=== PATIENT | male | born 1950 | race Caucasian/White ===

== ENCOUNTER 2019-10-28 15:53 | Inpatient (IN) ==
[2019-10-28] MEDS ORDERED: Ondansetron 4 MG/2 ML VIAL IVP PRN (18:07)
[2019-10-28] MEDS ORDERED: Naloxone 0.4 MG/ML INJ IVP PRN (18:07)
[2019-10-28] MEDS ORDERED: Acetaminophen 325 MG TABLET PO PRN (18:07)
[2019-10-28] MEDS ORDERED: *HR* Heparin 5,000 UNIT/ML VIAL IVP PRN ×2 (18:23)
[2019-10-28 19:09] LABS: White Blood Count 10.1 K/mcL (4.3-11.1)
[2019-10-28 19:10] LABS: Basophils # 0.1 K/mcL (0.0-0.2); Basophils % 0.5 %; Eosinophils # 0.6 K/mcL (0.0-0.6); Eosinophils % 6.2 %; Hematocrit 38.5 % (37.5-50.1); Immature Granulocytes % 0.5 % (0-4); Lymphocytes # 1.6 K/mcL (0.6-4.6); Lymphocytes % 15.6 %; Mean Corpuscular HGB Conc 33.8 g/dL (31.6-35.5); Mean Corpuscular Hemoglobin 30.8 pg (28.0-33.3); Mean Corpuscular Volume 91.2 fL (83.0-100.0); Mean Platelet Volume 9.6 fL (9.4-12.4); Monocytes # 0.9 K/mcL (0.0-1.3); Monocytes % 8.9 %; Neutrophils # 6.9 K/mcL (1.6-8.9); Platelet Count 264 K/mcL (140-400); Red Blood Count 4.22 M/mcL (4.19-5.50); Red Cell Distribution Width 12.6 % (11.5-14.5); Segmented Neutrophils % 68.3 %
[2019-10-28 19:18] LABS: Heparin anti-factor XA UFH 0.5 IU/mL (0.30-0.70); Prothrombin Time 11.1 Seconds (9.4-12.1)
[2019-10-28 19:21] LABS: Activated Partial Thrombo Time 64.1 Seconds (26.0-36.0)
[2019-10-28] MEDS: Heparin 25,000 UNIT/250 ML D5W 25,000 UNIT/250 ML IV.SOLN IVC SCH (19:27)
[2019-10-28 19:31] LABS: Alanine Aminotransferase 22 Units/L (7-52); Albumin 3.8 g/dL (3.5-5.7); Albumin/Globulin Ratio 1.4 (1.1-2.2); Alkaline Phosphatase 70 Units/L (34-104); Aspartate Amino Transferase 75 Units/L (13-39); BUN/Creatinine Ratio 19 (6-26); Bilirubin,Total 0.6 mg/dL (0.3-1.0); Blood Urea Nitrogen 22 mg/dL (8-23); Calcium 9.5 mg/dL (8.6-10.3); Carbon Dioxide 27 mEq/L (23-29); Chloride 101 mEq/L (98-107); Chol/HDL Ratio 5.4 (0-4.9); Cholesterol 209 mg/dL (< 200); Globulin 2.8 g/dL (2.4-3.5); Glucose 249 mg/dL (70-105); HDL Cholesterol 39 mg/dL (40-59); LDL Cholesterol,Calculated 122 mg/dL (0-99); Magnesium 1.7 mg/dL (1.6-2.6); Osmolality,Calculated 298 (280-300); Phosphorous 3.3 mg/dL (2.7-4.5); Potassium 4.2 mEq/L (3.5-5.1); Sodium 138 mEq/L (136-145); Total Protein 6.6 g/dL (6.4-8.9); Triglycerides 242 mg/dL (< 150); eGFR For African Americans > 60 (> 60); eGFR For Non-African Americans > 60 (> 60)
[2019-10-28] MEDS ORDERED: Dextrose Gel 15 GM/37.5 ML TUBE PO PRN ×2 (21:13)
[2019-10-28] MEDS ORDERED: *HR* Dextrose 50 % in Water (Syg) 50 ML SYRINGE IVP PRN (21:13)
[2019-10-28] MEDS ORDERED: Nitroglycerin 0.4 MG TAB.SUBL SL PRN (21:13)
[2019-10-28] MEDS ORDERED: D5% in Water 1,000 ML IVC PRN (21:13)
[2019-10-29 01:44] LABS: Bilirubin,Urine Negative (Negative); Blood,Urine Negative (Negative); Clarity,Urine Clear (Clear); Color,Urine Yellow (Yellow); Glucose,Urine (UA) 500 mg/dL (Normal); Ketones,Urine Trace mg/dL (Negative); Leukocyte Esterase,Urine Negative (Negative); Nitrite,Urine Negative (Negative); Protein,Urine 30 mg/dL (Neg-Trace); Specific Gravity,Urine 1.027 (1.010-1.025); Urobilinogen,Urine Normal (Normal)
[2019-10-29 01:47] LABS: Bacteria,Urine None Seen per hpf (None-Few); Hyaline Casts,Urine None Seen per lpf (None-Few); RBC,Urine 0-3 per hpf (0-3); Squamous Epithelial Cell,Urine Few per lpf (None-Few); WBC,Urine 0-3 per hpf (0-3)
[2019-10-29] MEDS: Insulin LISPRO 300 UNITS/3 ML VIAL SQ SCH ×4 (03:14→17:35)
[2019-10-29 04:54] LABS: Basophils # 0.1 K/mcL (0.0-0.2); Basophils % 0.7 %; Eosinophils # 0.6 K/mcL (0.0-0.6); Eosinophils % 6.6 %; Hematocrit 36.5 % (37.5-50.1); Immature Granulocytes % 0.5 % (0-4); Lymphocytes # 1.7 K/mcL (0.6-4.6); Lymphocytes % 19.8 %; Mean Corpuscular HGB Conc 32.9 g/dL (31.6-35.5); Mean Corpuscular Hemoglobin 31.3 pg (28.0-33.3); Mean Corpuscular Volume 95.1 fL (83.0-100.0); Mean Platelet Volume 10.2 fL (9.4-12.4); Monocytes # 0.7 K/mcL (0.0-1.3); Monocytes % 8.8 %; Neutrophils # 5.3 K/mcL (1.6-8.9); Platelet Count 238 K/mcL (140-400); Red Blood Count 3.84 M/mcL (4.19-5.50); Red Cell Distribution Width 12.6 % (11.5-14.5); Segmented Neutrophils % 63.6 %; White Blood Count 8.3 K/mcL (4.3-11.1)
[2019-10-29 04:58] LABS: Prothrombin Time 11.4 Seconds (9.4-12.1)
[2019-10-29 05:12] LABS: Alanine Aminotransferase 20 Units/L (7-52); Albumin 3.5 g/dL (3.5-5.7); Albumin/Globulin Ratio 1.3 (1.1-2.2); Alkaline Phosphatase 65 Units/L (34-104); Aspartate Amino Transferase 62 Units/L (13-39); BUN/Creatinine Ratio 18 (6-26); Bilirubin,Total 0.5 mg/dL (0.3-1.0); Blood Urea Nitrogen 24 mg/dL (8-23); Calcium 8.9 mg/dL (8.6-10.3); Carbon Dioxide 26 mEq/L (23-29); Chloride 100 mEq/L (98-107); Globulin 2.7 g/dL (2.4-3.5); Glucose 333 mg/dL (70-105); Magnesium 1.7 mg/dL (1.6-2.6); Osmolality,Calculated 299 (280-300); Sodium 136 mEq/L (136-145); Total Protein 6.2 g/dL (6.4-8.9); eGFR For African Americans > 60 (> 60); eGFR For Non-African Americans 54 (> 60)
[2019-10-29] MEDS ORDERED: Ringers Solution, Lactated 1,000 ML IVC ONE (05:28)
[2019-10-29 06:25] LABS: Thyroid Stimulating Hormone 2.613 mcIU/mL (0.340-5.600)
[2019-10-29] MEDS ORDERED: Aspirin 81 MG TAB.CHEW PO SCH (09:30)
[2019-10-29] MEDS: Aspirin 81 MG TAB.CHEW PO SCH (12:34)
[2019-10-29] MEDS ORDERED: Gabapentin 300 MG CAPSULE PO PRN (17:42)
[2019-10-29] MEDS: Heparin 25,000 UNIT/250 ML D5W 25,000 UNIT/250 ML IV.SOLN IVC SCH (19:20)
[2019-10-30 05:38] LABS: Basophils # 0.1 K/mcL (0.0-0.2); Basophils % 0.7 %; Eosinophils # 0.6 K/mcL (0.0-0.6); Eosinophils % 9.1 %; Hematocrit 34.4 % (37.5-50.1); Hemoglobin 11.7 g/dL (12.9-16.9); Immature Granulocytes % 0.6 % (0-4); Lymphocytes # 1.4 K/mcL (0.6-4.6); Lymphocytes % 19.7 %; Mean Corpuscular Hemoglobin 30.9 pg (28.0-33.3); Mean Corpuscular Volume 90.8 fL (83.0-100.0); Mean Platelet Volume 10.1 fL (9.4-12.4); Monocytes # 0.7 K/mcL (0.0-1.3); Monocytes % 9.3 %; Neutrophils # 4.2 K/mcL (1.6-8.9); Platelet Count 231 K/mcL (140-400); Red Blood Count 3.79 M/mcL (4.19-5.50); Red Cell Distribution Width 12.5 % (11.5-14.5); Segmented Neutrophils % 60.6 %
[2019-10-30 05:55] LABS: BUN/Creatinine Ratio 16 (6-26); Blood Urea Nitrogen 20 mg/dL (8-23); Carbon Dioxide 28 mEq/L (23-29); Chloride 99 mEq/L (98-107); Glucose 279 mg/dL (70-105); Osmolality,Calculated 299 (280-300); Sodium 138 mEq/L (136-145); eGFR For African Americans > 60 (> 60); eGFR For Non-African Americans 56 (> 60)
[2019-10-30] MEDS: Insulin LISPRO 300 UNITS/3 ML VIAL SQ SCH ×3 (08:05→16:16)
[2019-10-30] MEDS: Aspirin 81 MG TAB.CHEW PO SCH (09:03)
[2019-10-30] MEDS ORDERED: *HR* Heparin 10,000 UNIT/10 ML VIAL ONE (09:46)
[2019-10-30] MEDS ORDERED: ISOVUE-370 200 ML INFUS..BTL ONE ×2 (09:46→10:51)
[2019-10-30] MEDS ORDERED: Nitroglycerin 1,000 MCG/10 ML VIAL IV ONE (09:46)
[2019-10-30] MEDS ORDERED: Heparin 1,000 UNITS/500 mL 500 ML ONE (09:46)
[2019-10-30] MEDS ORDERED: 0.9 % Sodium Chloride 1,000 ML ONE ×2 (09:46→10:52)
[2019-10-30] MEDS ORDERED: *HR* Midazolam HCl 2 MG/2 ML VIAL ONE (11:14)
[2019-10-30] MEDS ORDERED: *HR* FentaNYL (PF) 100 MCG/2 ML VIAL ONE (11:15)
[2019-10-30] MEDS ORDERED: Verapamil 5 MG/2 ML VIAL ONE (11:17)
[2019-10-30] MEDS: Heparin 25,000 UNIT/250 ML D5W 25,000 UNIT/250 ML IV.SOLN IVC SCH (16:06)
[2019-10-30] MEDS: Chlorhexidine Rinse 15 ML MOUTHWASH MM SCH (21:06)
[2019-10-31] MEDS ORDERED: Dextrose 50 % in Water (Vial) 30 ML, Sodium Bicarbonate 20 MEQ, Lidocaine 1% 5 ML, Insu... TH ONE ×3 (02:00)
[2019-10-31] MEDS ORDERED: Insulin Human Regular 100 UNIT in 0.9 % Sodium Chloride 100 ML IV PRN (02:00)
[2019-10-31] MEDS ORDERED: Norepinephrine 4 MG in 0.9 % Sodium Chloride 250 ML IVC PRN (02:00)
[2019-10-31] MEDS ORDERED: Heparin 15,000 UNIT in 0.9 % Sodium Chloride 500 ML IV ONE (02:00)
[2019-10-31] MEDS ORDERED: Dextrose 50 % in Water (Vial) 30 ML, Sodium Bicarbonate 20 MEQ, Potassium Chloride 15 M... TH ONE (02:00)
[2019-10-31] MEDS ORDERED: Aspirin 81 MG TAB.CHEW PO ONE (06:00)
[2019-10-31] MEDS ORDERED: 0.9 % Sodium Chloride 1,000 ML IVC SCH (06:00)
[2019-10-31] MEDS ORDERED: Clindamycin 900 MG/50 ML 900 MG/50 ML IV.SOLN IVPB ONE (07:00)
[2019-10-31] MEDS: Chlorhexidine Rinse 15 ML MOUTHWASH MM SCH ×2 (07:10→20:16)
[2019-10-31] MEDS ORDERED: *HR* Propofol 200 MG/20 ML VIAL IVP ONE (07:24)
[2019-10-31] MEDS ORDERED: *HR* FentaNYL (PF) 1,000 MCG/20 ML VIAL ONE (07:24)
[2019-10-31] MEDS ORDERED: *HR* Midazolam HCl 5 MG/5 ML VIAL IVP ONE (07:24)
[2019-10-31] MEDS ORDERED: *HR* Rocuronium Bromide 50 MG/5 ML VIAL ONE (07:28)
[2019-10-31] MEDS ORDERED: Tranexamic Acid 1,000 MG/10 ML VIAL ONE (07:34)
[2019-10-31] MEDS ORDERED: Famotidine 20 MG/2 ML VIAL ONE (07:40)
[2019-10-31] MEDS ORDERED: Lidocaine 2% Syringe 100 MG/5 ML ONE (07:40)
[2019-10-31] MEDS ORDERED: *HR* Magnesium Sulfate 1 GM/2 ML VIAL ONE (07:40)
[2019-10-31] MEDS ORDERED: *HR* PHENYLEPHRINE 1,000 MCG/10 ML SYRINGE IVP ONE (07:46)
[2019-10-31] MEDS ORDERED: Dexamethasone 4 MG/ML VIAL ONE (07:46)
[2019-10-31] MEDS ORDERED: Protamine Sulfate 250 MG/25 ML VIAL IVP ONE (07:47)
[2019-10-31] MEDS ORDERED: D5% in Water 250 ML IV BAG IV ONE (07:52)
[2019-10-31] MEDS ORDERED: Tranexamic Acid 1,000 MG/10 ML VIAL IVP ONE (07:52)
[2019-10-31] MEDS ORDERED: *HR* Magnesium Sulfate 2 GM/50 ML PIGGYBACK IVPB ONE (07:52)
[2019-10-31] MEDS ORDERED: Mannitol 25% vial 12.5 GM/50 ML VIAL IVP ONE (07:52)
[2019-10-31] MEDS ORDERED: *HR* Heparin 10,000 UNIT/10 ML VIAL IV ONE (07:52)
[2019-10-31] MEDS ORDERED: Lidocaine 2% Syringe 100 MG/5 ML IV ONE (07:52)
[2019-10-31] MEDS ORDERED: Albumin Human 25% 25 GM/100 ML IV.SOLN IV ONE (07:52)
[2019-10-31] MEDS ORDERED: *HR* Phenylephrine 10 MG/ML VIAL IVC ONE (07:52)
[2019-10-31] MEDS ORDERED: Heparin 1,000 UNITS/500 mL 500 ML ONE ×2 (08:01→13:29)
[2019-10-31 09:20] LABS: ABG Base Excess 1 mEq/L (-2 to 3); ABG Chloride 101 mEq/L (98-107); ABG Glucose 282 mg/dL (60-95); ABG HCO3 27 mEq/L (21-27); ABG Ionized Calcium 1.21 mmol/L (1.15-1.35); ABG Oxygen Saturation 98 % (95-98); ABG PCO2 50 mmHg (35-45); ABG PH 7.35 pH Units (7.32-7.45); ABG PO2 113 mmHg (85-104); ABG TCO2 29 mEq/L (20-26)
[2019-10-31] MEDS ORDERED: Calcium Gluconate 1,000 MG/10 ML VIAL ONE (10:03)
[2019-10-31 10:42] LABS: ABG Base Excess 1 mEq/L (-2 to 3); ABG Chloride 102 mEq/L (98-107); ABG Glucose 296 mg/dL (60-95); ABG HCO3 25 mEq/L (21-27); ABG Ionized Calcium 1.14 mmol/L (1.15-1.35); ABG Oxygen Saturation 100 % (95-98); ABG PCO2 37 mmHg (35-45); ABG PH 7.44 pH Units (7.32-7.45); ABG PO2 191 mmHg (85-104); ABG TCO2 26 mEq/L (20-26)
[2019-10-31 11:23] LABS: ABG Base Excess 2 mEq/L (-2 to 3); ABG Chloride 97 mEq/L (98-107); ABG Glucose 343 mg/dL (60-95); ABG HCO3 26 mEq/L (21-27); ABG Ionized Calcium 1.01 mmol/L (1.15-1.35); ABG PCO2 34 mmHg (35-45); ABG PH 7.48 pH Units (7.32-7.45); ABG PO2 > 630 mmHg (85-104); ABG TCO2 27 mEq/L (20-26)
[2019-10-31 11:47] LABS: ABG Base Excess 3 mEq/L (-2 to 3); ABG Chloride 98 mEq/L (98-107); ABG Glucose 323 mg/dL (60-95); ABG HCO3 26 mEq/L (21-27); ABG Ionized Calcium 1.05 mmol/L (1.15-1.35); ABG Oxygen Saturation 100 % (95-98); ABG PCO2 30 mmHg (35-45); ABG PH 7.54 pH Units (7.32-7.45); ABG PO2 608 mmHg (85-104); ABG TCO2 27 mEq/L (20-26)
[2019-10-31 12:18] LABS: ABG Base Excess 3 mEq/L (-2 to 3); ABG Chloride 98 mEq/L (98-107); ABG Glucose 272 mg/dL (60-95); ABG HCO3 26 mEq/L (21-27); ABG Ionized Calcium 1.08 mmol/L (1.15-1.35); ABG Oxygen Saturation 100 % (95-98); ABG PCO2 37 mmHg (35-45); ABG PH 7.46 pH Units (7.32-7.45); ABG PO2 562 mmHg (85-104); ABG TCO2 28 mEq/L (20-26)
[2019-10-31 12:46] LABS: ABG Base Excess -1 mEq/L (-2 to 3); ABG Chloride 101 mEq/L (98-107); ABG Glucose 255 mg/dL (60-95); ABG HCO3 24 mEq/L (21-27); ABG Ionized Calcium 1.31 mmol/L (1.15-1.35); ABG Oxygen Saturation 100 % (95-98); ABG PCO2 38 mmHg (35-45); ABG PO2 163 mmHg (85-104); ABG TCO2 25 mEq/L (20-26)
[2019-10-31] MEDS ORDERED: 0.9 % Sodium Chloride 500 ML ONE (13:28)
[2019-10-31] MEDS ORDERED: *HR* Dextrose 50 % in Water (Syg) 50 ML SYRINGE IVP PRN (13:30)
[2019-10-31] MEDS ORDERED: Potassium Chloride 40 MEQ/200 ML BAG IVPB PRN (13:30)
[2019-10-31] MEDS ORDERED: Insulin Regular, Human 100 UNIT/ML IV PRN (13:30)
[2019-10-31] MEDS ORDERED: Acetaminophen 650 MG RECTAL SUPP RC PRN (13:36)
[2019-10-31] MEDS ORDERED: Ondansetron 4 MG/2 ML VIAL IVP PRN (13:36)
[2019-10-31] MEDS ORDERED: Calcium Gluconate 1gm/50mL 1 GM/50 ML BAG IVPB PRN (13:37)
[2019-10-31] MEDS: Insulin Human Regular 100 UNIT in 0.9 % Sodium Chloride 100 ML IVC SCH (13:45)
[2019-10-31 13:54] LABS: ABG Base Excess 1 mEq/L (-2 to 3); ABG HCO3 26 mEq/L (21-27); ABG Oxygen Saturation 98 % (95-98); ABG PCO2 43 mmHg (35-45); ABG PH 7.39 pH Units (7.32-7.45); ABG PO2 99 mmHg (85-104); ABG TCO2 27 mEq/L (20-26); Blood Gas Modality VC; Blood Gas VT 600 cc
[2019-10-31 14:02] LABS: Basophils # 0.1 K/mcL (0.0-0.2); Basophils % 0.4 %; Eosinophils # 0.4 K/mcL (0.0-0.6); Eosinophils % 2.2 %; Hematocrit 31.4 % (37.5-50.1); Hemoglobin 10.8 g/dL (12.9-16.9); Immature Granulocytes % 0.8 % (0-4); Lymphocytes # 0.9 K/mcL (0.6-4.6); Lymphocytes % 5.4 %; Mean Corpuscular HGB Conc 34.4 g/dL (31.6-35.5); Mean Corpuscular Hemoglobin 31.6 pg (28.0-33.3); Mean Corpuscular Volume 91.8 fL (83.0-100.0); Mean Platelet Volume 9.9 fL (9.4-12.4); Monocytes # 0.8 K/mcL (0.0-1.3); Monocytes % 4.7 %; Neutrophils # 13.8 K/mcL (1.6-8.9); Platelet Count 154 K/mcL (140-400); Red Blood Count 3.42 M/mcL (4.19-5.50); Red Cell Distribution Width 12.5 % (11.5-14.5); Segmented Neutrophils % 86.5 %
[2019-10-31 14:08] LABS: White Blood Count 15.9 K/mcL (4.3-11.1)
[2019-10-31 14:11] LABS: INR 1.2; Prothrombin Time 14.1 Seconds (9.4-12.1)
[2019-10-31 14:14] LABS: BUN/Creatinine Ratio 15 (6-26); Blood Urea Nitrogen 17 mg/dL (8-23); Calcium 8.6 mg/dL (8.6-10.3); Carbon Dioxide 24 mEq/L (23-29); Chloride 105 mEq/L (98-107); Glucose 214 mg/dL (70-105); Magnesium 2.7 mg/dL (1.6-2.6); Osmolality,Calculated 294 (280-300); Potassium 3.9 mEq/L (3.5-5.1); Sodium 138 mEq/L (136-145); eGFR For African Americans > 60 (> 60); eGFR For Non-African Americans > 60 (> 60)
[2019-10-31 14:16] LABS: Activated Partial Thrombo Time 30.8 Seconds (26.0-36.0)
[2019-10-31] MEDS: *HR* OxyCODONE/APAP 5/325 TABLET PO PRN ×2 (14:31→20:35)
[2019-10-31] MEDS: 0.9 % Sodium Chloride w KCl 20 MEQ/1,000 ML MLS IVC SCH (14:34)
[2019-10-31] MEDS: Pantoprazole 40 MG VIAL IVP SCH (15:40)
[2019-10-31] MEDS: *HR* FentaNYL (PF) 100 MCG/2 ML VIAL IVP PRN ×4 (15:40→21:15)
[2019-10-31] MEDS: Clindamycin 900 MG/50 ML 900 MG/50 ML IV.SOLN IVPB SCH ×2 (15:41→23:49)
[2019-10-31 17:11] LABS: ABG Base Excess 1 mEq/L (-2 to 3); ABG HCO3 26 mEq/L (21-27); ABG Oxygen Saturation 97 % (95-98); ABG PCO2 39 mmHg (35-45); ABG PH 7.43 pH Units (7.32-7.45); ABG PO2 86 mmHg (85-104); ABG TCO2 27 mEq/L (20-26); Blood Gas Modality CPAP/PS; Blood Gas Pressure Support 10 cm H2O
[2019-10-31 18:34] LABS: ABG Base Excess 1 mEq/L (-2 to 3); ABG HCO3 26 mEq/L (21-27); ABG Oxygen Saturation 97 % (95-98); ABG PCO2 46 mmHg (35-45); ABG PH 7.37 pH Units (7.32-7.45); ABG PO2 90 mmHg (85-104); ABG TCO2 28 mEq/L (20-26)
[2019-10-31] MEDS: Metoclopramide 10 MG/2 ML VIAL IVP SCH ×2 (18:55→23:50)
[2019-10-31] MEDS: Norepinephrine 4 MG in 0.9 % Sodium Chloride 250 ML IVC SCH (20:15)
[2019-10-31] MEDS: niCARdipine 20 MG in 0.9 % Sodium Chloride 192 ML IVC SCH (20:15)
[2019-10-31 20:27] LABS: Basophils % 0.2 %; Eosinophils # 0.1 K/mcL (0.0-0.6); Eosinophils % 0.4 %; Hematocrit 31.1 % (37.5-50.1); Hemoglobin 10.5 g/dL (12.9-16.9); Immature Granulocytes % 0.6 % (0-4); Lymphocytes # 0.9 K/mcL (0.6-4.6); Lymphocytes % 5.9 %; Mean Corpuscular HGB Conc 33.8 g/dL (31.6-35.5); Mean Corpuscular Hemoglobin 31.1 pg (28.0-33.3); Mean Platelet Volume 10.7 fL (9.4-12.4); Monocytes # 0.9 K/mcL (0.0-1.3); Neutrophils # 12.4 K/mcL (1.6-8.9); Platelet Count 170 K/mcL (140-400); Red Blood Count 3.38 M/mcL (4.19-5.50); Red Cell Distribution Width 12.6 % (11.5-14.5); Segmented Neutrophils % 86.9 %; White Blood Count 14.3 K/mcL (4.3-11.1)
[2019-10-31 20:36] LABS: BUN/Creatinine Ratio 16 (6-26); Blood Urea Nitrogen 18 mg/dL (8-23); Calcium 8.8 mg/dL (8.6-10.3); Carbon Dioxide 26 mEq/L (23-29); Chloride 104 mEq/L (98-107); Glucose 185 mg/dL (70-105); Osmolality,Calculated 297 (280-300); Sodium 140 mEq/L (136-145); eGFR For African Americans > 60 (> 60); eGFR For Non-African Americans > 60 (> 60)
[2019-11-01] MEDS: *HR* OxyCODONE/APAP 5/325 TABLET PO PRN ×4 (02:07→21:50)
[2019-11-01 03:35] LABS: Basophils % 0.1 %; Eosinophils % 0.1 %; Hematocrit 29.7 % (37.5-50.1); Hemoglobin 9.7 g/dL (12.9-16.9); Immature Granulocytes % 0.5 % (0-4); Lymphocytes # 0.5 K/mcL (0.6-4.6); Lymphocytes % 3.5 %; Mean Corpuscular HGB Conc 32.7 g/dL (31.6-35.5); Mean Corpuscular Hemoglobin 31.2 pg (28.0-33.3); Mean Corpuscular Volume 95.5 fL (83.0-100.0); Mean Platelet Volume 9.9 fL (9.4-12.4); Monocytes # 1.1 K/mcL (0.0-1.3); Monocytes % 7.6 %; Neutrophils # 12.3 K/mcL (1.6-8.9); Platelet Count 163 K/mcL (140-400); Red Blood Count 3.11 M/mcL (4.19-5.50); Red Cell Distribution Width 12.9 % (11.5-14.5); Segmented Neutrophils % 88.2 %; White Blood Count 13.9 K/mcL (4.3-11.1)
[2019-11-01 03:40] LABS: INR 1.2; Prothrombin Time 13.1 Seconds (9.4-12.1)
[2019-11-01 03:42] LABS: Activated Partial Thrombo Time 29.6 Seconds (26.0-36.0)
[2019-11-01] MEDS: *HR* FentaNYL (PF) 100 MCG/2 ML VIAL IVP PRN (03:48)
[2019-11-01 03:56] LABS: BUN/Creatinine Ratio 16 (6-26); Blood Urea Nitrogen 20 mg/dL (8-23); Calcium 8.4 mg/dL (8.6-10.3); Carbon Dioxide 23 mEq/L (23-29); Chloride 105 mEq/L (98-107); Glucose 199 mg/dL (70-105); Magnesium 2.1 mg/dL (1.6-2.6); Osmolality,Calculated 296 (280-300); Potassium 4.6 mEq/L (3.5-5.1); Sodium 139 mEq/L (136-145); eGFR For African Americans > 60 (> 60); eGFR For Non-African Americans 59 (> 60)
[2019-11-01] MEDS: Metoclopramide 10 MG/2 ML VIAL IVP SCH ×3 (05:17→19:21)
[2019-11-01] MEDS ORDERED: Furosemide 20 MG/2 ML VIAL IVP SCH ×2 (08:00→17:00)
[2019-11-01] MEDS: Chlorhexidine Rinse 15 ML MOUTHWASH MM SCH ×2 (08:23→21:51)
[2019-11-01] MEDS: Pantoprazole 40 MG VIAL IVP SCH (08:23)
[2019-11-01] MEDS ORDERED: Aspirin Enteric Coated 81 MG Tablet PO SCH (09:00)
[2019-11-01] MEDS: 0.9 % Sodium Chloride w KCl 20 MEQ/1,000 ML MLS IVC SCH (13:17)
[2019-11-01] MEDS: Norepinephrine 4 MG in 0.9 % Sodium Chloride 250 ML IVC SCH (13:18)
[2019-11-01] MEDS: niCARdipine 20 MG in 0.9 % Sodium Chloride 192 ML IVC SCH (13:18)
[2019-11-01] MEDS: Insulin Human Regular 100 UNIT in 0.9 % Sodium Chloride 100 ML IVC SCH (14:08)
[2019-11-01] MEDS ORDERED: *HR* Metformin 500 MG TABLET PO SCH (14:26)
[2019-11-01] MEDS ORDERED: Insulin Regular, Human 100 UNIT/ML IV PRN (14:26)
[2019-11-01] MEDS ORDERED: Nitroglycerin 0.4 MG TAB.SUBL SL PRN (14:26)
[2019-11-01] MEDS ORDERED: *HR* Dextrose 50 % in Water (Syg) 50 ML SYRINGE IVP PRN (14:26)
[2019-11-01] MEDS ORDERED: D5% in Water 1,000 ML IVC PRN (14:26)
[2019-11-01] MEDS ORDERED: Naloxone 0.4 MG/ML INJ IVP PRN (14:26)
[2019-11-01] MEDS ORDERED: Dextrose Gel 15 GM/37.5 ML TUBE PO PRN ×2 (14:26)
[2019-11-01] MEDS ORDERED: GlipiZIDE 5 MG TABLET PO SCH (14:26)
[2019-11-01] MEDS ORDERED: Insulin Human Regular 100 UNIT in 0.9 % Sodium Chloride 100 ML IVC SCH (14:26)
[2019-11-01] MEDS: Insulin LISPRO 300 UNITS/3 ML VIAL SQ SCH ×4 (14:46→22:00)
[2019-11-01] MEDS: Aspirin 81 MG TAB.CHEW PO SCH (14:47)
[2019-11-01] MEDS: Heparin 25,000 UNIT/250 ML D5W 25,000 UNIT/250 ML IV.SOLN IVC SCH (14:47)
[2019-11-01] MEDS: (Dapagliflozin Propanediol [Farxiga] 5 MG) PO SCH (15:39)
[2019-11-01] MEDS: Multivit/Ca/Min/Fe/FA 1 TAB TABLET PO SCH (15:39)
[2019-11-01] MEDS: *HR* Metformin 500 MG TABLET PO SCH (21:52)
[2019-11-01] MEDS: GlipiZIDE 5 MG TABLET PO SCH (21:52)
[2019-11-02] MEDS: Metoclopramide 10 MG/2 ML VIAL IVP SCH ×4 (00:23→16:51)
[2019-11-02] MEDS: *HR* OxyCODONE/APAP 5/325 TABLET PO PRN ×4 (02:56→16:52)
[2019-11-02 07:27] LABS: Basophils % 0.2 %; Eosinophils % 0.7 %; Hematocrit 29.4 % (37.5-50.1); Hemoglobin 9.5 g/dL (12.9-16.9); Immature Granulocytes % 0.5 % (0-4); Lymphocytes % 8.1 %; Mean Corpuscular HGB Conc 32.3 g/dL (31.6-35.5); Mean Corpuscular Hemoglobin 30.9 pg (28.0-33.3); Mean Corpuscular Volume 95.8 fL (83.0-100.0); Mean Platelet Volume 10.1 fL (9.4-12.4); Monocytes % 9.5 %; Platelet Count 200 K/mcL (140-400); Red Blood Count 3.07 M/mcL (4.19-5.50); Red Cell Distribution Width 13.2 % (11.5-14.5); White Blood Count 11.1 K/mcL (4.3-11.1)
[2019-11-02 07:28] LABS: Eosinophils # 0.1 K/mcL (0.0-0.6); Lymphocytes # 0.9 K/mcL (0.6-4.6); Monocytes # 1.1 K/mcL (0.0-1.3)
[2019-11-02] MEDS: Gabapentin 300 MG CAPSULE PO PRN ×2 (07:35→16:51)
[2019-11-02] MEDS: Aspirin Enteric Coated 81 MG Tablet PO SCH (08:55)
[2019-11-02] MEDS: Chlorhexidine Rinse 15 ML MOUTHWASH MM SCH ×2 (08:55→21:27)
[2019-11-02] MEDS: Multivit/Ca/Min/Fe/FA 1 TAB TABLET PO SCH (08:55)
[2019-11-02] MEDS: *HR* Metformin 500 MG TABLET PO SCH ×2 (08:55→16:51)
[2019-11-02] MEDS: GlipiZIDE 5 MG TABLET PO SCH ×2 (08:56→16:51)
[2019-11-02] MEDS: Insulin LISPRO 300 UNITS/3 ML VIAL SQ SCH ×4 (08:57→21:33)
[2019-11-02] MEDS: Acetaminophen 325 MG TABLET PO PRN ×2 (08:59→16:51)
[2019-11-02] MEDS ORDERED: Pantoprazole 40 MG VIAL IVP SCH (09:00)
[2019-11-02 09:42] LABS: Calcium 8.2 mg/dL (8.6-10.3); Potassium 4.3 mEq/L (3.5-5.1)
[2019-11-02] MEDS: (Dapagliflozin Propanediol [Farxiga] 5 MG) PO SCH (13:50)
[2019-11-02] MEDS: Aspirin 325 MG TABLET PO PRN (21:27)
[2019-11-03] MEDS: Metoclopramide 10 MG/2 ML VIAL IVP SCH ×2 (00:43→06:25)
[2019-11-03] MEDS: Acetaminophen 325 MG TABLET PO PRN ×3 (00:44→16:48)
[2019-11-03] MEDS: Aspirin 325 MG TABLET PO PRN (04:17)
[2019-11-03] MEDS: *HR* Metformin 500 MG TABLET PO SCH (07:44)
[2019-11-03] MEDS: GlipiZIDE 5 MG TABLET PO SCH (07:44)
[2019-11-03] MEDS: Multivit/Ca/Min/Fe/FA 1 TAB TABLET PO SCH (07:44)
[2019-11-03] MEDS: Aspirin Enteric Coated 81 MG Tablet PO SCH (07:44)
[2019-11-03] MEDS: Chlorhexidine Rinse 15 ML MOUTHWASH MM SCH ×2 (07:44→20:57)
[2019-11-03] MEDS: Insulin LISPRO 300 UNITS/3 ML VIAL SQ SCH ×4 (07:45→20:57)
[2019-11-03] MEDS: (Dapagliflozin Propanediol [Farxiga] 5 MG) PO SCH (07:46)
[2019-11-03 07:59] LABS: Basophils # 0.1 K/mcL (0.0-0.2); Basophils % 0.4 %; Eosinophils # 0.2 K/mcL (0.0-0.6); Eosinophils % 1.3 %; Hematocrit 26.5 % (37.5-50.1); Hemoglobin 8.5 g/dL (12.9-16.9); Immature Granulocytes % 0.5 % (0-4); Lymphocytes # 1.2 K/mcL (0.6-4.6); Mean Corpuscular HGB Conc 32.1 g/dL (31.6-35.5); Mean Corpuscular Hemoglobin 30.7 pg (28.0-33.3); Mean Corpuscular Volume 95.7 fL (83.0-100.0); Mean Platelet Volume 9.7 fL (9.4-12.4); Monocytes # 1.1 K/mcL (0.0-1.3); Monocytes % 8.4 %; Neutrophils # 10.7 K/mcL (1.6-8.9); Platelet Count 207 K/mcL (140-400); Red Blood Count 2.77 M/mcL (4.19-5.50); Red Cell Distribution Width 13.3 % (11.5-14.5); Segmented Neutrophils % 80.4 %; White Blood Count 13.3 K/mcL (4.3-11.1)
[2019-11-03 09:21] LABS: Calcium 7.8 mg/dL (8.6-10.3); Potassium 4.7 mEq/L (3.5-5.1)
[2019-11-03] MEDS: 0.9 % Sodium Chloride 1,000 ML IVC SCH (09:39)
[2019-11-03 11:32] LABS: Bilirubin,Urine Small (Negative); Blood,Urine Moderate (Negative); Color,Urine Dark Yellow (Yellow); Glucose,Urine (UA) 250 mg/dL (Normal); Ketones,Urine Negative (Negative); Leukocyte Esterase,Urine Negative (Negative); Nitrite,Urine Negative (Negative); Protein,Urine 30 mg/dL (Neg-Trace); Specific Gravity,Urine 1.026 (1.010-1.025); Urobilinogen,Urine Normal (Normal)
[2019-11-03 11:36] LABS: Bacteria,Urine None Seen per hpf (None-Few); Hyaline Casts,Urine None Seen per lpf (None-Few); Squamous Epithelial Cell,Urine Few per lpf (None-Few); WBC,Urine 0-3 per hpf (0-3)
[2019-11-03 11:40] LABS: Clarity,Urine Slightly Hazy (Clear)
[2019-11-03 12:06] LABS: Uric Acid 9.3 mg/dL (2.3-7.6)
[2019-11-03] MEDS: Cefepime HCl 1,000 MG in 0.9 % Sodium Chloride Mini Bag 100 ML IVPB SCH (15:53)
[2019-11-03] MEDS: Doxycycline 100 MG in 0.9 % Sodium Chloride Mini Bag 100 ML IVPB SCH (16:45)
[2019-11-03 17:17] LABS: Adenovirus Not Detected (Not Detect); Bordetella Pertussis Not Detected (Not Detect); Chlamydophila pneumoniae Not Detected (Not Detect); Coronavirus 229E Not Detected (Not Detect); Coronavirus HKU1 Not Detected (Not Detect); Coronavirus NL63 Not Detected (Not Detect); Coronavirus OC43 Not Detected (Not Detect); Human Metapneumovirus Not Detected (Not Detect); Human Rhinovirus/Enterovirus Not Detected (Not Detect); Influenza A Subtype 2009 H1 Not Detected (Not Detect); Influenza B Not Detected (Not Detect); Mycoplasma pneumoniae Not Detected (Not Detect); Parainfluenza Virus 1 Not Detected (Not Detect); Parainfluenza Virus 2 Not Detected (Not Detect); Parainfluenza Virus 3 Not Detected (Not Detect); Parainfluenza Virus 4 Not Detected (Not Detect); Respiratory Syncytial Virus Not Detected (Not Detect)
[2019-11-03 18:00] LABS: % Iron Saturation 6 % (20-55); Iron 10 mcg/dL (65-175); Transferrin 129 mg/dL (203-362)
[2019-11-03 18:36] LABS: Folate > 22.3 ng/mL (3.0-16.0); Vitamin B12 821 pg/mL (250-1100)
[2019-11-04] MEDS: 0.9 % Sodium Chloride 1,000 ML IVC SCH (00:15)
[2019-11-04] MEDS: Acetaminophen 325 MG TABLET PO PRN (04:09)
[2019-11-04] MEDS: Cefepime HCl 1,000 MG in 0.9 % Sodium Chloride Mini Bag 100 ML IVPB SCH ×2 (05:37→16:40)
[2019-11-04] MEDS: Doxycycline 100 MG in 0.9 % Sodium Chloride Mini Bag 100 ML IVPB SCH ×2 (05:37→16:40)
[2019-11-04 06:05] LABS: Basophils % 0.2 %; Eosinophils # 0.2 K/mcL (0.0-0.6); Eosinophils % 1.9 %; Hematocrit 26.3 % (37.5-50.1); Hemoglobin 8.2 g/dL (12.9-16.9); Immature Granulocytes % 0.7 % (0-4); Lymphocytes # 0.7 K/mcL (0.6-4.6); Lymphocytes % 5.9 %; Mean Corpuscular HGB Conc 31.2 g/dL (31.6-35.5); Mean Corpuscular Hemoglobin 30.9 pg (28.0-33.3); Mean Corpuscular Volume 99.2 fL (83.0-100.0); Monocytes % 7.6 %; Neutrophils # 10.5 K/mcL (1.6-8.9); Platelet Count 241 K/mcL (140-400); Red Blood Count 2.65 M/mcL (4.19-5.50); Red Cell Distribution Width 13.3 % (11.5-14.5); Segmented Neutrophils % 83.7 %; White Blood Count 12.6 K/mcL (4.3-11.1)
[2019-11-04 06:22] LABS: Calcium 7.7 mg/dL (8.6-10.3); Potassium 5.2 mEq/L (3.5-5.1)
[2019-11-04] MEDS: Multivit/Ca/Min/Fe/FA 1 TAB TABLET PO SCH (07:33)
[2019-11-04] MEDS: Chlorhexidine Rinse 15 ML MOUTHWASH MM SCH ×2 (07:33→20:15)
[2019-11-04] MEDS: Aspirin Enteric Coated 81 MG Tablet PO SCH (07:33)
[2019-11-04] MEDS: Insulin LISPRO 300 UNITS/3 ML VIAL SQ SCH ×4 (07:34→20:17)
[2019-11-04] MEDS ORDERED: SODIUM ZIRCONIUM CYCLOSILICATE 5 GM POWD.PACK PO SCH (09:15)
[2019-11-04] MEDS: Sodium Bicarbonate 75 MEQ in 0.45 % Sodium Chloride 1,000 ML IVC SCH ×2 (10:05→23:12)
[2019-11-04 10:56] LABS: Protein/Creatinine Ratio,Urine 1.31 mg/mg (0.00-0.20)
[2019-11-04] MEDS: Insulin DETEMIR 100 UNIT/ML X5UNITS SQ SCH (20:15)
[2019-11-05 05:11] LABS: Basophils % 0.4 %; Eosinophils # 0.5 K/mcL (0.0-0.6); Eosinophils % 4.1 %; Hematocrit 25.4 % (37.5-50.1); Hemoglobin 8.2 g/dL (12.9-16.9); Immature Granulocytes % 0.6 % (0-4); Lymphocytes # 0.9 K/mcL (0.6-4.6); Lymphocytes % 8.3 %; Mean Corpuscular HGB Conc 32.3 g/dL (31.6-35.5); Mean Corpuscular Hemoglobin 30.6 pg (28.0-33.3); Mean Corpuscular Volume 94.8 fL (83.0-100.0); Mean Platelet Volume 9.7 fL (9.4-12.4); Monocytes % 9.1 %; Neutrophils # 8.6 K/mcL (1.6-8.9); Platelet Count 296 K/mcL (140-400); Red Blood Count 2.68 M/mcL (4.19-5.50); Red Cell Distribution Width 13.2 % (11.5-14.5); Segmented Neutrophils % 77.5 %; White Blood Count 11.1 K/mcL (4.3-11.1)
[2019-11-05 05:32] LABS: Complement C3 178 mg/dL (87-200)
[2019-11-05 05:33] LABS: Calcium 7.7 mg/dL (8.6-10.3); Potassium 5.1 mEq/L (3.5-5.1)
[2019-11-05] MEDS: Cefepime HCl 1,000 MG in 0.9 % Sodium Chloride Mini Bag 100 ML IVPB SCH ×2 (05:48→16:33)
[2019-11-05] MEDS: Doxycycline 100 MG in 0.9 % Sodium Chloride Mini Bag 100 ML IVPB SCH ×2 (05:49→16:34)
[2019-11-05] MEDS: Chlorhexidine Rinse 15 ML MOUTHWASH MM SCH ×2 (07:36→21:16)
[2019-11-05] MEDS: Multivit/Ca/Min/Fe/FA 1 TAB TABLET PO SCH (07:36)
[2019-11-05] MEDS: Gabapentin 300 MG CAPSULE PO SCH (07:37)
[2019-11-05] MEDS: Aspirin Enteric Coated 81 MG Tablet PO SCH (07:37)
[2019-11-05] MEDS: Insulin LISPRO 300 UNITS/3 ML VIAL SQ SCH ×4 (07:37→21:22)
[2019-11-05] MEDS: Sodium Bicarbonate 75 MEQ in 0.45 % Sodium Chloride 1,000 ML IVC SCH (15:02)
[2019-11-05] MEDS: Insulin DETEMIR 100 UNIT/ML X5UNITS SQ SCH (21:16)
[2019-11-05] MEDS: Acetaminophen 325 MG TABLET PO PRN (21:21)
[2019-11-06 04:50] LABS: Basophils % 0.2 %; Eosinophils # 0.5 K/mcL (0.0-0.6); Eosinophils % 5.7 %; Hematocrit 22.8 % (37.5-50.1); Hemoglobin 7.6 g/dL (12.9-16.9); Immature Granulocytes % 0.9 % (0-4); Lymphocytes # 0.8 K/mcL (0.6-4.6); Lymphocytes % 8.5 %; Mean Corpuscular HGB Conc 33.3 g/dL (31.6-35.5); Mean Corpuscular Hemoglobin 31.1 pg (28.0-33.3); Mean Corpuscular Volume 93.4 fL (83.0-100.0); Mean Platelet Volume 9.6 fL (9.4-12.4); Monocytes # 0.8 K/mcL (0.0-1.3); Monocytes % 9.3 %; Neutrophils # 6.6 K/mcL (1.6-8.9); Platelet Count 311 K/mcL (140-400); Red Blood Count 2.44 M/mcL (4.19-5.50); Segmented Neutrophils % 75.4 %; White Blood Count 8.8 K/mcL (4.3-11.1)
[2019-11-06 04:59] LABS: Calcium 7.5 mg/dL (8.6-10.3)
[2019-11-06] MEDS: Cefepime HCl 1,000 MG in 0.9 % Sodium Chloride Mini Bag 100 ML IVPB SCH (05:54)
[2019-11-06] MEDS: Doxycycline 100 MG in 0.9 % Sodium Chloride Mini Bag 100 ML IVPB SCH ×2 (05:55→16:34)
[2019-11-06] MEDS: Sodium Bicarbonate 75 MEQ in 0.45 % Sodium Chloride 1,000 ML IVC SCH ×2 (06:02→16:36)
[2019-11-06 07:36] LABS: Hepatitis B Surface Antibody < 3.10 mIU/mL
[2019-11-06 07:47] LABS: Hepatitis B Surface Antigen Nonreactive (Nonreactive)
[2019-11-06] MEDS: Chlorhexidine Rinse 15 ML MOUTHWASH MM SCH ×2 (07:49→20:55)
[2019-11-06] MEDS: Insulin LISPRO 300 UNITS/3 ML VIAL SQ SCH ×4 (07:50→20:55)
[2019-11-06] MEDS: Multivit/Ca/Min/Fe/FA 1 TAB TABLET PO SCH (07:50)
[2019-11-06] MEDS: Aspirin Enteric Coated 81 MG Tablet PO SCH (07:50)
[2019-11-06] MEDS: Gabapentin 300 MG CAPSULE PO SCH (07:50)
[2019-11-06] MEDS ORDERED: Bisacodyl 10 MG RECTAL SUPPOSITORY RC SCH (09:00)
[2019-11-06] MEDS: Ondansetron 4 MG/2 ML VIAL IVP PRN ×2 (12:11→20:55)
[2019-11-06] MEDS ORDERED: Sodium Bicarbonate 75 MEQ in 0.45 % Sodium Chloride 1,000 ML IVC SCH (15:45)
[2019-11-06] MEDS: Insulin DETEMIR 100 UNIT/ML X5UNITS SQ SCH (20:56)
[2019-11-07 01:21] LABS: Basophils % 0.3 %; Eosinophils # 0.1 K/mcL (0.0-0.6); Eosinophils % 1.1 %; Hematocrit 23.5 % (37.5-50.1); Hemoglobin 7.4 g/dL (12.9-16.9); Immature Granulocytes % 1.3 % (0-4); Lymphocytes # 0.5 K/mcL (0.6-4.6); Lymphocytes % 5.6 %; Mean Corpuscular HGB Conc 31.5 g/dL (31.6-35.5); Mean Corpuscular Hemoglobin 30.3 pg (28.0-33.3); Mean Corpuscular Volume 96.3 fL (83.0-100.0); Mean Platelet Volume 9.6 fL (9.4-12.4); Monocytes # 0.9 K/mcL (0.0-1.3); Monocytes % 9.4 %; Neutrophils # 7.6 K/mcL (1.6-8.9); Platelet Count 344 K/mcL (140-400); Red Blood Count 2.44 M/mcL (4.19-5.50); Red Cell Distribution Width 13.1 % (11.5-14.5); Segmented Neutrophils % 82.3 %; White Blood Count 9.2 K/mcL (4.3-11.1)
[2019-11-07 01:37] LABS: Calcium 7.6 mg/dL (8.6-10.3); Potassium 5.8 mEq/L (3.5-5.1)
[2019-11-07] MEDS: Doxycycline 100 MG in 0.9 % Sodium Chloride Mini Bag 100 ML IVPB SCH ×3 (04:51→18:08)
[2019-11-07] MEDS ORDERED: Cefepime HCl 1,000 MG in 0.9 % Sodium Chloride Mini Bag 100 ML IVPB SCH (06:00)
[2019-11-07] MEDS: Ondansetron 4 MG/2 ML VIAL IVP PRN (06:09)
[2019-11-07] MEDS ORDERED: 0.9 % Sodium Chloride 250 ML IVC PRN (07:55)
[2019-11-07] MEDS ORDERED: *HR* Heparin 10,000 UNIT/10 ML VIAL IV PRN (07:55)
[2019-11-07] MEDS ORDERED: 0.9 % Sodium Chloride 1,000 ML PRIME SCH (08:00)
[2019-11-07] MEDS: Chlorhexidine Rinse 15 ML MOUTHWASH MM SCH ×2 (08:38→21:44)
[2019-11-07] MEDS: Multivit/Ca/Min/Fe/FA 1 TAB TABLET PO SCH (08:47)
[2019-11-07] MEDS: Insulin LISPRO 300 UNITS/3 ML VIAL SQ SCH ×4 (08:48→21:44)
[2019-11-07] MEDS ORDERED: Ondansetron 4 MG/2 ML VIAL IVP PRN (09:13)
[2019-11-07] MEDS: Gabapentin 300 MG CAPSULE PO SCH (09:26)
[2019-11-07] MEDS: Aspirin Enteric Coated 81 MG Tablet PO SCH (09:26)
[2019-11-07] MEDS: Sodium Bicarbonate 75 MEQ in 0.45 % Sodium Chloride 1,000 ML IVC SCH (09:40)
[2019-11-07] MEDS ORDERED: *HR* Alteplase (Cathflo) 2 MG VIAL IVP PRN (09:41)
[2019-11-07] MEDS ORDERED: 0.9 % Sodium Chloride 1,000 ML PRIME ONE ×2 (09:41)
[2019-11-07 10:03] LABS: VBG Ionized Calcium 0.94 mmol/L (1.15-1.35)
[2019-11-07 10:03] LABS: Hemoglobin 7.6 g/dL (12.9-16.9); Mean Corpuscular HGB Conc 31.7 g/dL (31.6-35.5); Mean Corpuscular Hemoglobin 30.6 pg (28.0-33.3); Mean Corpuscular Volume 96.8 fL (83.0-100.0); Mean Platelet Volume 9.5 fL (9.4-12.4); Platelet Count 374 K/mcL (140-400); Red Blood Count 2.48 M/mcL (4.19-5.50); Red Cell Distribution Width 13.2 % (11.5-14.5); White Blood Count 9.8 K/mcL (4.3-11.1)
[2019-11-07 10:06] LABS: INR 1.3; Prothrombin Time 14.7 Seconds (9.4-12.1)
[2019-11-07 10:08] LABS: Activated Partial Thrombo Time 29.5 Seconds (26.0-36.0)
[2019-11-07 10:18] LABS: Albumin 2.8 g/dL (3.5-5.7); Albumin/Globulin Ratio 0.9 (1.1-2.2); Amylase 22 Units/L (29-103); Bilirubin,Direct 0.1 mg/dL (0.0-0.2); Bilirubin,Indirect 0.2 mg/dL (0.0-1.0); Bilirubin,Total 0.3 mg/dL (0.3-1.0); Globulin 3.1 g/dL (2.4-3.5); Lipase 12 Units/L (11-82); Total Protein 5.9 g/dL (6.4-8.9)
[2019-11-07 10:54] LABS: Albumin 2.8 g/dL (3.5-5.7); BUN/Creatinine Ratio 9 (6-26); Blood Urea Nitrogen 79 mg/dL (8-23); Calcium 7.7 mg/dL (8.6-10.3); Carbon Dioxide 22 mEq/L (23-29); Chloride 101 mEq/L (98-107); Ferritin 353 ng/mL (20-250); Glucose 170 mg/dL (70-105); Iron < 10 mcg/dL (65-175); Magnesium 2.3 mg/dL (1.6-2.6); Osmolality,Calculated 312 (280-300); Phosphorous 7.9 mg/dL (2.7-4.5); Potassium 5.3 mEq/L (3.5-5.1); Sodium 137 mEq/L (136-145); Transferrin 129 mg/dL (203-362); eGFR For African Americans 8 (> 60); eGFR For Non-African Americans 6 (> 60)
[2019-11-07] MEDS ORDERED: *HR* Heparin 5,000 UNIT/ML VIAL ONE ×3 (11:10→22:41)
[2019-11-07] MEDS ORDERED: *HR* Promethazine 25 MG/ML VIAL IM ONE (11:42)
[2019-11-07] MEDS ORDERED: *HR* Promethazine 25 MG/ML VIAL IVP ONE ×2 (11:42→11:47)
[2019-11-07 12:23] LABS: Hematocrit 23.6 % (37.5-50.1); Hemoglobin 7.7 g/dL (12.9-16.9)
[2019-11-07] MEDS ORDERED: Perflutren Lipid Microsphere 1.3 ML in 0.9 % Sodium Chloride 8.7 ML IVP ONE (14:07)
[2019-11-07] MEDS: PrismaSATE BGK 4/2.5 5,000 ML CRRT SCH ×6 (15:10→21:56)
[2019-11-07] MEDS ORDERED: 0.9 % Sodium Chloride 500 ML ONE ×2 (15:26→18:43)
[2019-11-07] MEDS: Cefepime HCl 2,000 MG in Water for inj. (sterile) 20 ML IVP SCH (17:32)
[2019-11-07] MEDS: *HR* Heparin 5,000 UNIT/ML VIAL HE PRN (21:45)
[2019-11-07] MEDS: Insulin DETEMIR 100 UNIT/ML X5UNITS SQ SCH (21:53)
[2019-11-08] MEDS: Sodium Bicarbonate 75 MEQ in 0.45 % Sodium Chloride 1,000 ML IVC SCH ×2 (02:04→10:08)
[2019-11-08] MEDS: PrismaSATE BGK 4/2.5 5,000 ML CRRT SCH ×8 (02:16→12:55)
[2019-11-08 04:47] LABS: Basophils # 0.1 K/mcL (0.0-0.2); Basophils % 0.6 %; Eosinophils # 0.4 K/mcL (0.0-0.6); Eosinophils % 4.9 %; Hematocrit 29.5 % (37.5-50.1); Immature Granulocytes % 0.9 % (0-4); Lymphocytes # 0.7 K/mcL (0.6-4.6); Lymphocytes % 8.1 %; Mean Corpuscular HGB Conc 32.5 g/dL (31.6-35.5); Mean Corpuscular Hemoglobin 30.3 pg (28.0-33.3); Mean Corpuscular Volume 93.1 fL (83.0-100.0); Mean Platelet Volume 9.2 fL (9.4-12.4); Monocytes # 0.8 K/mcL (0.0-1.3); Monocytes % 9.4 %; Neutrophils # 6.2 K/mcL (1.6-8.9); Platelet Count 372 K/mcL (140-400); Red Blood Count 3.17 M/mcL (4.19-5.50); Red Cell Distribution Width 14.6 % (11.5-14.5); Segmented Neutrophils % 76.1 %; White Blood Count 8.1 K/mcL (4.3-11.1)
[2019-11-08 04:51] LABS: Calcium 7.7 mg/dL (8.6-10.3); Potassium 4.3 mEq/L (3.5-5.1)
[2019-11-08 04:52] LABS: Hemoglobin 9.6 g/dL (12.9-16.9)
[2019-11-08] MEDS ORDERED: *HR* Heparin 5,000 UNIT/ML VIAL ONE ×2 (05:16→14:56)
[2019-11-08] MEDS: Cefepime HCl 2,000 MG in Water for inj. (sterile) 20 ML IVP SCH (05:56)
[2019-11-08] MEDS: Doxycycline 100 MG in 0.9 % Sodium Chloride Mini Bag 100 ML IVPB SCH ×2 (05:56→17:47)
[2019-11-08] MEDS: *HR* Heparin 5,000 UNIT/ML VIAL HE PRN ×2 (05:57→15:17)
[2019-11-08] MEDS: Insulin LISPRO 300 UNITS/3 ML VIAL SQ SCH ×4 (07:45→20:18)
[2019-11-08] MEDS: Aspirin Enteric Coated 81 MG Tablet PO SCH (07:49)
[2019-11-08] MEDS: Chlorhexidine Rinse 15 ML MOUTHWASH MM SCH ×2 (07:49→20:23)
[2019-11-08] MEDS: Multivit/Ca/Min/Fe/FA 1 TAB TABLET PO SCH (07:49)
[2019-11-08] MEDS: Gabapentin 300 MG CAPSULE PO SCH (07:49)
[2019-11-08 10:59] LABS: ANA IgG by ELISA NONE DETECTED (None Detected)
[2019-11-08] MEDS ORDERED: Metoclopramide 10 MG/2 ML VIAL IVP PRN (14:28)
[2019-11-08 16:26] LABS: Basophils % 0.3 %; Eosinophils # 0.3 K/mcL (0.0-0.6); Eosinophils % 3.2 %; Hematocrit 28.3 % (37.5-50.1); Hemoglobin 9.2 g/dL (12.9-16.9); Immature Granulocytes % 0.9 % (0-4); Immature Platelets 1.4 % (1.1-6.1); Lymphocytes # 0.4 K/mcL (0.6-4.6); Lymphocytes % 3.8 %; Mean Corpuscular HGB Conc 32.5 g/dL (31.6-35.5); Mean Corpuscular Hemoglobin 30.5 pg (28.0-33.3); Mean Corpuscular Volume 93.7 fL (83.0-100.0); Monocytes # 0.8 K/mcL (0.0-1.3); Monocytes % 8.1 %; Platelet Count 371 K/mcL (140-400); Red Blood Count 3.02 M/mcL (4.19-5.50); Red Cell Distribution Width 14.6 % (11.5-14.5); Segmented Neutrophils % 83.7 %; White Blood Count 9.5 K/mcL (4.3-11.1)
[2019-11-08 16:32] LABS: Calcium 7.5 mg/dL (8.6-10.3); Magnesium 2.4 mg/dL (1.6-2.6); Phosphorous 3.8 mg/dL (2.7-4.5); Potassium 4.8 mEq/L (3.5-5.1)
[2019-11-08] MEDS ORDERED: Amiodarone Premix 360 MG/200 ML BAG IVC ONE (16:55)
[2019-11-08] MEDS ORDERED: Amiodarone Premix 360 MG/200 ML BAG IVC SCH (17:00)
[2019-11-08 17:27] LABS: INR 1.4; Prothrombin Time 15.4 Seconds (9.4-12.1)
[2019-11-08] MEDS: *HR* Heparin 5,000 UNIT/ML VIAL SQ SCH (17:42)
[2019-11-08] MEDS: Calcium Gluconate 1gm/50mL 1 GM/50 ML BAG IVPB SCH ×2 (17:42→20:39)
[2019-11-08] MEDS ORDERED: Ondansetron 4 MG/2 ML VIAL IVP PRN (17:43)
[2019-11-08] MEDS: Cefepime HCl 1,000 MG in Water for inj. (sterile) 10 ML IVP SCH (17:46)
[2019-11-08] MEDS ORDERED: Metoclopramide 10 MG/2 ML VIAL IVP SCH (18:00)
[2019-11-08] MEDS: Insulin DETEMIR 100 UNIT/ML X5UNITS SQ SCH (20:23)
[2019-11-09 04:08] LABS: Basophils % 0.2 %; Eosinophils # 0.3 K/mcL (0.0-0.6); Eosinophils % 3.1 %; Hematocrit 28.1 % (37.5-50.1); Hemoglobin 9.2 g/dL (12.9-16.9); Immature Granulocytes % 1.1 % (0-4); Lymphocytes # 0.6 K/mcL (0.6-4.6); Lymphocytes % 6.1 %; Mean Corpuscular HGB Conc 32.7 g/dL (31.6-35.5); Mean Corpuscular Hemoglobin 30.2 pg (28.0-33.3); Mean Corpuscular Volume 92.1 fL (83.0-100.0); Mean Platelet Volume 8.9 fL (9.4-12.4); Monocytes # 0.8 K/mcL (0.0-1.3); Monocytes % 8.8 %; Neutrophils # 7.6 K/mcL (1.6-8.9); Platelet Count 364 K/mcL (140-400); Red Blood Count 3.05 M/mcL (4.19-5.50); Red Cell Distribution Width 14.4 % (11.5-14.5); Segmented Neutrophils % 80.7 %; White Blood Count 9.4 K/mcL (4.3-11.1)
[2019-11-09 04:23] LABS: Calcium 7.8 mg/dL (8.6-10.3); Potassium 4.4 mEq/L (3.5-5.1)
[2019-11-09] MEDS: Doxycycline 100 MG in 0.9 % Sodium Chloride Mini Bag 100 ML IVPB SCH ×2 (06:01→17:57)
[2019-11-09] MEDS: *HR* Heparin 5,000 UNIT/ML VIAL SQ SCH ×2 (06:01→18:11)
[2019-11-09] MEDS: Cefepime HCl 1,000 MG in Water for inj. (sterile) 10 ML IVP SCH ×2 (06:01→17:57)
[2019-11-09] MEDS ORDERED: Prochlorperazine 10 MG/2 ML VIAL IM PRN (08:04)
[2019-11-09] MEDS ORDERED: Lactulose Oral Soln 20 GM/30 ML UDC PO ONE (08:07)
[2019-11-09] MEDS: Insulin LISPRO 300 UNITS/3 ML VIAL SQ SCH ×4 (08:15→20:37)
[2019-11-09] MEDS: Chlorhexidine Rinse 15 ML MOUTHWASH MM SCH ×2 (08:53→20:36)
[2019-11-09] MEDS: *HR* OxyCODONE/APAP 5/325 TABLET PO PRN ×2 (08:53→18:19)
[2019-11-09] MEDS: Gabapentin 300 MG CAPSULE PO SCH (08:54)
[2019-11-09] MEDS: Aspirin Enteric Coated 81 MG Tablet PO SCH (08:54)
[2019-11-09] MEDS: Multivit/Ca/Min/Fe/FA 1 TAB TABLET PO SCH (08:54)
[2019-11-09] MEDS: Levalbuterol Neb 1.25 MG/3 ML IH SCH ×2 (09:40→22:07)
[2019-11-09] MEDS ORDERED: Prochlorperazine 10 MG/2 ML VIAL IVP PRN ×2 (12:09→16:36)
[2019-11-09 12:20] LABS: VBG Ionized Calcium 1.08 mmol/L (1.15-1.35)
[2019-11-09 12:20] LABS: INR 1.3; Prothrombin Time 14.5 Seconds (9.4-12.1)
[2019-11-09 12:23] LABS: Activated Partial Thrombo Time 32.6 Seconds (26.0-36.0)
[2019-11-09] MEDS ORDERED: Amiodarone Premix 360 MG/200 ML BAG IVC ONE (13:57)
[2019-11-09] MEDS ORDERED: 0.9 % Sodium Chloride 1,000 ML ONE ×2 (14:01→14:02)
[2019-11-09] MEDS ORDERED: Clindamycin 600 MG/50 ML 1,200 MG/100 ML IV.SOLN IVPB ONE (14:01)
[2019-11-09 14:17] LABS: ABG Base Excess -1 mEq/L (-2 to 3); ABG HCO3 24 mEq/L (21-27); ABG Oxygen Saturation 97 % (95-98); ABG PCO2 41 mmHg (35-45); ABG PH 7.38 pH Units (7.32-7.45); ABG PO2 93 mmHg (85-104); ABG TCO2 25 mEq/L (20-26); Blood Gas Modality ASSIST CONTROL; Blood Gas VT 500 cc
[2019-11-09] MEDS: FentaNYL (PF) 1,000 MCG in 0.9 % Sodium Chloride 80 ML IVC SCH (14:18)
[2019-11-09 14:56] LABS: Basophils % 0.4 %; Eosinophils # 0.3 K/mcL (0.0-0.6); Eosinophils % 2.4 %; Hematocrit 29.8 % (37.5-50.1); Hemoglobin 9.6 g/dL (12.9-16.9); Immature Granulocytes % 2.2 % (0-4); Lymphocytes # 0.8 K/mcL (0.6-4.6); Lymphocytes % 7.6 %; Mean Corpuscular HGB Conc 32.2 g/dL (31.6-35.5); Mean Corpuscular Hemoglobin 30.1 pg (28.0-33.3); Mean Corpuscular Volume 93.4 fL (83.0-100.0); Mean Platelet Volume 9.2 fL (9.4-12.4); Monocytes # 0.7 K/mcL (0.0-1.3); Monocytes % 6.7 %; Neutrophils # 8.7 K/mcL (1.6-8.9); Platelet Count 410 K/mcL (140-400); Red Blood Count 3.19 M/mcL (4.19-5.50); Red Cell Distribution Width 14.3 % (11.5-14.5); Segmented Neutrophils % 80.7 %; White Blood Count 10.7 K/mcL (4.3-11.1)
[2019-11-09 15:11] LABS: Calcium 7.6 mg/dL (8.6-10.3); Potassium 4.7 mEq/L (3.5-5.1)
[2019-11-09 15:15] LABS: Calcium 7.8 mg/dL (8.6-10.3); Magnesium 2.8 mg/dL (1.6-2.6)
[2019-11-09] MEDS ORDERED: 0.9 % Sodium Chloride 1,000 ML PRIME ONE ×2 (16:14)
[2019-11-09] MEDS ORDERED: 0.9 % Sodium Chloride 1,000 ML PRIME SCH (16:15)
[2019-11-09] MEDS ORDERED: Artificial Tears SOLN 15 ML BOTTLE BOTH EYES PRN (16:31)
[2019-11-09] MEDS: PrismaSATE BGK 4/2.5 5,000 ML CRRT SCH ×6 (17:30→21:10)
[2019-11-09] MEDS: Amiodarone Premix 360 MG/200 ML BAG IVC SCH ×2 (17:54→20:35)
[2019-11-09] MEDS ORDERED: Calcium Gluconate 1gm/50mL 1 GM/50 ML BAG IVPB ONE (20:00)
[2019-11-09] MEDS: Insulin DETEMIR 100 UNIT/ML X5UNITS SQ SCH (20:37)
[2019-11-09] MEDS: Artificial Tears SOLN 15 ML BOTTLE BOTH EYES SCH (20:41)
[2019-11-09 22:33] LABS: Thyroid Stimulating Hormone 2.64 mcIU/mL (0.340-5.600)
[2019-11-10] MEDS: Artificial Tears SOLN 15 ML BOTTLE BOTH EYES SCH ×7 (00:30→22:49)
[2019-11-10] MEDS: PrismaSATE BGK 4/2.5 5,000 ML CRRT SCH ×16 (00:30→22:48)
[2019-11-10] MEDS: FentaNYL (PF) 1,000 MCG in 0.9 % Sodium Chloride 80 ML IVC SCH (04:00)
[2019-11-10 04:09] LABS: Basophils % 0.4 %; Eosinophils # 0.3 K/mcL (0.0-0.6); Eosinophils % 3.9 %; Hematocrit 26.9 % (37.5-50.1); Hemoglobin 8.8 g/dL (12.9-16.9); Immature Granulocytes % 1.3 % (0-4); Lymphocytes # 0.5 K/mcL (0.6-4.6); Mean Corpuscular HGB Conc 32.7 g/dL (31.6-35.5); Mean Corpuscular Hemoglobin 30.1 pg (28.0-33.3); Mean Corpuscular Volume 92.1 fL (83.0-100.0); Mean Platelet Volume 8.8 fL (9.4-12.4); Monocytes # 0.5 K/mcL (0.0-1.3); Monocytes % 6.4 %; Platelet Count 331 K/mcL (140-400); Red Blood Count 2.92 M/mcL (4.19-5.50); Red Cell Distribution Width 14.1 % (11.5-14.5); White Blood Count 8.5 K/mcL (4.3-11.1)
[2019-11-10 04:23] LABS: Calcium 7.7 mg/dL (8.6-10.3); Magnesium 2.6 mg/dL (1.6-2.6); Potassium 4.2 mEq/L (3.5-5.1)
[2019-11-10] MEDS: *HR* Heparin 5,000 UNIT/ML VIAL HE PRN ×2 (04:56→17:20)
[2019-11-10] MEDS: 0.9 % Sodium Chloride 1,000 ML PRIME SCH ×2 (04:57→04:58)
[2019-11-10 05:29] LABS: ABG Base Excess 6 mEq/L (-2 to 3); ABG HCO3 30 mEq/L (21-27); ABG Oxygen Saturation 96 % (95-98); ABG PCO2 43 mmHg (35-45); ABG PH 7.46 pH Units (7.32-7.45); ABG PO2 80 mmHg (85-104); ABG TCO2 32 mEq/L (20-26); Blood Gas VT 500 cc
[2019-11-10] MEDS: Doxycycline 100 MG in 0.9 % Sodium Chloride Mini Bag 100 ML IVPB SCH ×2 (06:00→17:22)
[2019-11-10] MEDS: *HR* Heparin 5,000 UNIT/ML VIAL SQ SCH ×2 (06:00→17:23)
[2019-11-10] MEDS: Cefepime HCl 1,000 MG in Water for inj. (sterile) 10 ML IVP SCH (06:00)
[2019-11-10] MEDS ORDERED: 0.9 % Sodium Chloride 500 ML IVC ONE (07:21)
[2019-11-10] MEDS: Levalbuterol Neb 1.25 MG/3 ML IH SCH ×2 (07:25→21:06)
[2019-11-10] MEDS: Norepinephrine 4 MG in 0.9 % Sodium Chloride 250 ML IVC SCH (08:03)
[2019-11-10] MEDS: Insulin LISPRO 300 UNITS/3 ML VIAL SQ SCH ×4 (08:28→20:40)
[2019-11-10] MEDS: Pantoprazole 40 MG VIAL IVP SCH (08:34)
[2019-11-10] MEDS: Multivit/Ca/Min/Fe/FA 1 TAB TABLET PO SCH (08:34)
[2019-11-10] MEDS: Gabapentin 300 MG CAPSULE PO SCH (08:34)
[2019-11-10] MEDS: Aspirin 81 MG TAB.CHEW PO SCH (08:34)
[2019-11-10] MEDS: Chlorhexidine Rinse 15 ML MOUTHWASH MM SCH ×2 (08:34→20:40)
[2019-11-10] MEDS ORDERED: Cefepime HCl 1,000 MG in Water for inj. (sterile) 10 ML IVP ONE (09:30)
[2019-11-10] MEDS: Calcium Gluconate 1gm/50mL 1 GM/50 ML BAG IVPB PRN ×2 (11:17→17:23)
[2019-11-10] MEDS ORDERED: *HR* Midazolam HCl 2 MG/2 ML VIAL IV ONE (13:46)
[2019-11-10] MEDS ORDERED: *HR* Etomidate 20 MG/10 ML AMPUL IVP ONE (13:46)
[2019-11-10] MEDS ORDERED: *HR* Succinylcholine 200 MG/10 ML VIAL IVP ONE (13:46)
[2019-11-10] MEDS ORDERED: *HR* Heparin 5,000 UNIT/ML VIAL ONE (14:42)
[2019-11-10] MEDS: Cefepime HCl 2,000 MG in Water for inj. (sterile) 20 ML IVP SCH (17:23)
[2019-11-10] MEDS: Insulin DETEMIR 100 UNIT/ML X5UNITS SQ SCH (20:40)
[2019-11-11] MEDS: PrismaSATE BGK 4/2.5 5,000 ML CRRT SCH ×18 (02:05→22:55)
[2019-11-11] MEDS: Artificial Tears SOLN 15 ML BOTTLE BOTH EYES SCH ×6 (02:27→23:58)
[2019-11-11] MEDS ORDERED: *HR* Heparin 5,000 UNIT/ML VIAL ONE ×2 (04:09→21:17)
[2019-11-11 04:19] LABS: Calcium 7.7 mg/dL (8.6-10.3); Magnesium 2.4 mg/dL (1.6-2.6); Potassium 4.9 mEq/L (3.5-5.1)
[2019-11-11 04:27] LABS: Basophils # 0.1 K/mcL (0.0-0.2); Basophils % 0.5 %; Eosinophils # 0.2 K/mcL (0.0-0.6); Eosinophils % 2.3 %; Hematocrit 27.6 % (37.5-50.1); Hemoglobin 8.6 g/dL (12.9-16.9); Immature Granulocytes % 1.6 % (0-4); Lymphocytes # 0.6 K/mcL (0.6-4.6); Lymphocytes % 6.1 %; Mean Corpuscular HGB Conc 31.2 g/dL (31.6-35.5); Mean Corpuscular Hemoglobin 30.3 pg (28.0-33.3); Mean Corpuscular Volume 97.2 fL (83.0-100.0); Mean Platelet Volume 9.2 fL (9.4-12.4); Monocytes # 0.7 K/mcL (0.0-1.3); Monocytes % 6.8 %; Neutrophils # 8.2 K/mcL (1.6-8.9); Platelet Count 296 K/mcL (140-400); Red Blood Count 2.84 M/mcL (4.19-5.50); Red Cell Distribution Width 13.7 % (11.5-14.5); Segmented Neutrophils % 82.7 %; White Blood Count 9.9 K/mcL (4.3-11.1)
[2019-11-11] MEDS: *HR* Heparin 5,000 UNIT/ML VIAL HE PRN (05:16)
[2019-11-11] MEDS: 0.9 % Sodium Chloride 1,000 ML PRIME SCH (05:17)
[2019-11-11] MEDS: Cefepime HCl 2,000 MG in Water for inj. (sterile) 20 ML IVP SCH ×2 (05:59→18:05)
[2019-11-11] MEDS: Doxycycline 100 MG in 0.9 % Sodium Chloride Mini Bag 100 ML IVPB SCH ×2 (05:59→18:06)
[2019-11-11] MEDS: *HR* Heparin 5,000 UNIT/ML VIAL SQ SCH ×2 (05:59→18:05)
[2019-11-11] MEDS: Chlorhexidine Rinse 15 ML MOUTHWASH MM SCH ×2 (07:30→20:59)
[2019-11-11] MEDS ORDERED: Calcium Gluconate 1gm/50mL 1 GM/50 ML BAG IVPB ONE (07:41)
[2019-11-11] MEDS ORDERED: Amiodarone Premix 360 MG/200 ML BAG IVC ONE ×2 (07:50→07:55)
[2019-11-11] MEDS: Pantoprazole 40 MG VIAL IVP SCH (08:11)
[2019-11-11] MEDS: Insulin LISPRO 300 UNITS/3 ML VIAL SQ SCH ×4 (08:27→20:56)
[2019-11-11] MEDS: Nystatin SUSP 5 ML UD.LIQ PO SCH ×4 (08:59→20:56)
[2019-11-11] MEDS ORDERED: *HR* Amiodarone 200 MG TABLET PO SCH (09:00)
[2019-11-11] MEDS: Gabapentin 300 MG CAPSULE PO SCH (09:27)
[2019-11-11] MEDS: Multivit/Ca/Min/Fe/FA 1 TAB TABLET PO SCH (09:27)
[2019-11-11] MEDS: *HR* Amiodarone 200 MG TABLET PO SCH ×3 (09:27→20:56)
[2019-11-11] MEDS: Aspirin 81 MG TAB.CHEW PO SCH (09:27)
[2019-11-11] MEDS: Levalbuterol Neb 1.25 MG/3 ML IH SCH ×2 (10:15→21:14)
[2019-11-11] MEDS ORDERED: Phenylephrine 10 MG in 0.9 % Sodium Chloride 250 ML IVC SCH (10:30)
[2019-11-11 11:05] LABS: Alanine Aminotransferase 31 Units/L (7-52); Aspartate Amino Transferase 30 Units/L (13-39); Creatine Kinase 98 Units/L (30-223)
[2019-11-11] MEDS: Norepinephrine 4 MG in 0.9 % Sodium Chloride 250 ML IVC SCH (11:34)
[2019-11-11] MEDS: FentaNYL (PF) 1,000 MCG in 0.9 % Sodium Chloride 80 ML IVC SCH (12:42)
[2019-11-11 13:32] LABS: Thyroid Stimulating Hormone 2.172 mcIU/mL (0.340-5.600)
[2019-11-11] MEDS ORDERED: Amiodarone Premix 360 MG/200 ML BAG IVC SCH (14:00)
[2019-11-11] MEDS: Phenylephrine 50 MG in 0.9 % Sodium Chloride 250 ML IVC SCH (14:17)
[2019-11-11] MEDS: Amiodarone Premix 360 MG/200 ML BAG IVC SCH ×2 (15:11→19:22)
[2019-11-11] MEDS: Melatonin 3 MG TABLET PO PRN (20:55)
[2019-11-11] MEDS: Insulin DETEMIR 100 UNIT/ML X5UNITS SQ SCH (20:56)
[2019-11-12] MEDS: Amiodarone Premix 360 MG/200 ML BAG IVC SCH ×4 (01:20→20:00)
[2019-11-12] MEDS: *HR* Heparin 5,000 UNIT/ML VIAL HE PRN ×2 (01:53→12:12)
[2019-11-12] MEDS: 0.9 % Sodium Chloride 1,000 ML PRIME SCH ×2 (01:54→01:55)
[2019-11-12] MEDS: PrismaSATE BGK 4/2.5 5,000 ML CRRT SCH ×8 (02:55→20:45)
[2019-11-12 04:04] LABS: Basophils % 0.4 %; Eosinophils # 0.3 K/mcL (0.0-0.6); Eosinophils % 2.6 %; Hematocrit 26.7 % (37.5-50.1); Hemoglobin 8.4 g/dL (12.9-16.9); Immature Granulocytes % 1.9 % (0-4); Lymphocytes # 0.7 K/mcL (0.6-4.6); Lymphocytes % 6.6 %; Mean Corpuscular HGB Conc 31.5 g/dL (31.6-35.5); Mean Corpuscular Volume 95.4 fL (83.0-100.0); Mean Platelet Volume 9.1 fL (9.4-12.4); Monocytes # 0.7 K/mcL (0.0-1.3); Monocytes % 6.4 %; Neutrophils # 8.5 K/mcL (1.6-8.9); Platelet Count 305 K/mcL (140-400); Red Cell Distribution Width 13.5 % (11.5-14.5); Segmented Neutrophils % 82.1 %; White Blood Count 10.3 K/mcL (4.3-11.1)
[2019-11-12] MEDS: Artificial Tears SOLN 15 ML BOTTLE BOTH EYES SCH ×3 (04:10→13:14)
[2019-11-12 04:15] LABS: Calcium 7.7 mg/dL (8.6-10.3); Magnesium 2.5 mg/dL (1.6-2.6); Potassium 4.2 mEq/L (3.5-5.1)
[2019-11-12] MEDS: Cefepime HCl 2,000 MG in Water for inj. (sterile) 20 ML IVP SCH ×2 (06:03→17:59)
[2019-11-12] MEDS: Doxycycline 100 MG in 0.9 % Sodium Chloride Mini Bag 100 ML IVPB SCH ×2 (06:03→17:59)
[2019-11-12] MEDS: *HR* Heparin 5,000 UNIT/ML VIAL SQ SCH ×2 (06:04→17:59)
[2019-11-12] MEDS: Norepinephrine 4 MG in 0.9 % Sodium Chloride 250 ML IVC SCH (07:18)
[2019-11-12] MEDS: Insulin LISPRO 300 UNITS/3 ML VIAL SQ SCH ×4 (08:29→20:19)
[2019-11-12] MEDS: Chlorhexidine Rinse 15 ML MOUTHWASH MM SCH ×2 (08:30→20:17)
[2019-11-12] MEDS: Pantoprazole 40 MG VIAL IVP SCH (08:30)
[2019-11-12] MEDS: Nystatin SUSP 5 ML UD.LIQ PO SCH ×4 (08:30→20:17)
[2019-11-12] MEDS: Gabapentin 300 MG CAPSULE PO SCH (08:30)
[2019-11-12] MEDS: *HR* Amiodarone 200 MG TABLET PO SCH ×3 (08:30→20:18)
[2019-11-12] MEDS: Multivit/Ca/Min/Fe/FA 1 TAB TABLET PO SCH (08:30)
[2019-11-12] MEDS: Aspirin 81 MG TAB.CHEW PO SCH (08:30)
[2019-11-12] MEDS: Levalbuterol Neb 1.25 MG/3 ML IH SCH ×2 (09:28→22:36)
[2019-11-12] MEDS ORDERED: Perflutren Lipid Microsphere 1.3 ML in 0.9 % Sodium Chloride 8.7 ML IVP ONE (09:42)
[2019-11-12] MEDS: Phenylephrine 50 MG in 0.9 % Sodium Chloride 250 ML IVC SCH (13:14)
[2019-11-12] MEDS: FentaNYL (PF) 1,000 MCG in 0.9 % Sodium Chloride 80 ML IVC SCH (13:15)
[2019-11-12] MEDS: Melatonin 3 MG TABLET PO PRN (20:18)
[2019-11-12] MEDS: Insulin DETEMIR 100 UNIT/ML X5UNITS SQ SCH (20:25)
[2019-11-13] MEDS: PrismaSATE BGK 4/2.5 5,000 ML CRRT SCH ×4 (00:17→04:00)
[2019-11-13] MEDS: Amiodarone Premix 360 MG/200 ML BAG IVC SCH ×2 (02:00→07:39)
[2019-11-13 04:40] LABS: Basophils % 0.3 %; Eosinophils # 0.3 K/mcL (0.0-0.6); Eosinophils % 2.2 %; Hematocrit 25.1 % (37.5-50.1); Immature Granulocytes % 1.4 % (0-4); Lymphocytes # 0.4 K/mcL (0.6-4.6); Lymphocytes % 2.9 %; Mean Corpuscular HGB Conc 31.9 g/dL (31.6-35.5); Mean Corpuscular Hemoglobin 30.2 pg (28.0-33.3); Mean Corpuscular Volume 94.7 fL (83.0-100.0); Mean Platelet Volume 9.1 fL (9.4-12.4); Monocytes # 0.5 K/mcL (0.0-1.3); Monocytes % 4.1 %; Neutrophils # 11.5 K/mcL (1.6-8.9); Platelet Count 295 K/mcL (140-400); Red Blood Count 2.65 M/mcL (4.19-5.50); Red Cell Distribution Width 13.3 % (11.5-14.5); Segmented Neutrophils % 89.1 %; White Blood Count 12.9 K/mcL (4.3-11.1)
[2019-11-13 05:03] LABS: BUN/Creatinine Ratio 6 (6-26); Blood Urea Nitrogen 8 mg/dL (8-23); Calcium 7.6 mg/dL (8.6-10.3); Carbon Dioxide 29 mEq/L (23-29); Chloride 102 mEq/L (98-107); Glucose 110 mg/dL (70-105); Magnesium 2.4 mg/dL (1.6-2.6); Osmolality,Calculated 285 (280-300); Potassium 4.1 mEq/L (3.5-5.1); Sodium 138 mEq/L (136-145); eGFR For African Americans > 60 (> 60); eGFR For Non-African Americans 52 (> 60)
[2019-11-13] MEDS: Cefepime HCl 2,000 MG in Water for inj. (sterile) 20 ML IVP SCH (05:37)
[2019-11-13] MEDS: Doxycycline 100 MG in 0.9 % Sodium Chloride Mini Bag 100 ML IVPB SCH ×2 (05:37→17:20)
[2019-11-13] MEDS: *HR* Heparin 5,000 UNIT/ML VIAL SQ SCH ×2 (05:38→17:40)
[2019-11-13] MEDS: Phenylephrine 50 MG in 0.9 % Sodium Chloride 250 ML IVC SCH (06:54)
[2019-11-13] MEDS: Insulin LISPRO 300 UNITS/3 ML VIAL SQ SCH ×4 (07:39→21:15)
[2019-11-13] MEDS: Norepinephrine 4 MG in 0.9 % Sodium Chloride 250 ML IVC SCH (07:39)
[2019-11-13] MEDS: Levalbuterol Neb 1.25 MG/3 ML IH SCH ×2 (07:41→22:40)
[2019-11-13] MEDS: Chlorhexidine Rinse 15 ML MOUTHWASH MM SCH ×2 (07:52→21:15)
[2019-11-13] MEDS: Aspirin 81 MG TAB.CHEW PO SCH (07:52)
[2019-11-13] MEDS: *HR* Amiodarone 200 MG TABLET PO SCH ×3 (07:52→21:14)
[2019-11-13] MEDS: Gabapentin 300 MG CAPSULE PO SCH (07:52)
[2019-11-13] MEDS: Multivit/Ca/Min/Fe/FA 1 TAB TABLET PO SCH (07:52)
[2019-11-13] MEDS: Pantoprazole 40 MG VIAL IVP SCH (07:52)
[2019-11-13] MEDS: Nystatin SUSP 5 ML UD.LIQ PO SCH ×4 (07:52→21:15)
[2019-11-13] MEDS ORDERED: Furosemide 40 MG/4 ML VIAL IVP ONE (11:09)
[2019-11-13] MEDS: Lactulose Oral Soln 20 GM/30 ML UDC PO SCH ×2 (14:54→21:15)
[2019-11-13 15:45] LABS: Calcium 7.5 mg/dL (8.6-10.3); Potassium 4.2 mEq/L (3.5-5.1)
[2019-11-13] MEDS: Insulin DETEMIR 100 UNIT/ML X5UNITS SQ SCH (21:15)
[2019-11-13] MEDS: Melatonin 3 MG TABLET PO PRN (21:38)
[2019-11-14 05:25] LABS: Basophils % 0.3 %; Eosinophils # 0.3 K/mcL (0.0-0.6); Eosinophils % 2.9 %; Hematocrit 23.6 % (37.5-50.1); Hemoglobin 7.4 g/dL (12.9-16.9); Immature Granulocytes % 1.6 % (0-4); Lymphocytes # 0.8 K/mcL (0.6-4.6); Lymphocytes % 8.1 %; Mean Corpuscular HGB Conc 31.4 g/dL (31.6-35.5); Mean Corpuscular Hemoglobin 30.1 pg (28.0-33.3); Mean Corpuscular Volume 95.9 fL (83.0-100.0); Mean Platelet Volume 9.4 fL (9.4-12.4); Monocytes # 0.7 K/mcL (0.0-1.3); Neutrophils # 7.5 K/mcL (1.6-8.9); Platelet Count 313 K/mcL (140-400); Red Blood Count 2.46 M/mcL (4.19-5.50); Red Cell Distribution Width 13.7 % (11.5-14.5); Segmented Neutrophils % 80.1 %; White Blood Count 9.3 K/mcL (4.3-11.1)
[2019-11-14 05:39] LABS: Calcium 7.6 mg/dL (8.6-10.3); Magnesium 2.3 mg/dL (1.6-2.6)
[2019-11-14] MEDS: Doxycycline 100 MG in 0.9 % Sodium Chloride Mini Bag 100 ML IVPB SCH ×2 (05:47→18:12)
[2019-11-14] MEDS: *HR* Heparin 5,000 UNIT/ML VIAL SQ SCH ×2 (05:48→18:22)
[2019-11-14] MEDS ORDERED: 0.9 % Sodium Chloride 250 ML IVC PRN (07:44)
[2019-11-14] MEDS ORDERED: Albumin 25% 25gram/100mL 25 GM/100 ML IV.SOLN IVPB PRN (07:44)
[2019-11-14] MEDS: Insulin LISPRO 300 UNITS/3 ML VIAL SQ SCH ×4 (07:47→19:47)
[2019-11-14] MEDS: Norepinephrine 4 MG in 0.9 % Sodium Chloride 250 ML IVC SCH (07:47)
[2019-11-14] MEDS: Nystatin SUSP 5 ML UD.LIQ PO SCH ×4 (08:01→19:36)
[2019-11-14] MEDS ORDERED: *HR* Heparin 10,000 UNIT/10 ML VIAL IV PRN (08:01)
[2019-11-14] MEDS: Chlorhexidine Rinse 15 ML MOUTHWASH MM SCH ×2 (08:01→19:36)
[2019-11-14] MEDS: Gabapentin 300 MG CAPSULE PO SCH (08:01)
[2019-11-14] MEDS: Lactulose Oral Soln 20 GM/30 ML UDC PO SCH ×2 (08:01→19:36)
[2019-11-14] MEDS: Multivit/Ca/Min/Fe/FA 1 TAB TABLET PO SCH (08:01)
[2019-11-14] MEDS: *HR* Amiodarone 200 MG TABLET PO SCH ×3 (08:01→19:36)
[2019-11-14] MEDS: Aspirin 81 MG TAB.CHEW PO SCH (08:01)
[2019-11-14] MEDS ORDERED: Levalbuterol Neb 1.25 MG/3 ML IH PRN (09:49)
[2019-11-14] MEDS: Levalbuterol Neb 1.25 MG/3 ML IH SCH ×2 (09:51→22:21)
[2019-11-14] MEDS: Phenylephrine 50 MG in 0.9 % Sodium Chloride 250 ML IVC SCH (19:30)
[2019-11-14] MEDS: Insulin DETEMIR 100 UNIT/ML X5UNITS SQ SCH (19:47)
[2019-11-14] MEDS: Melatonin 3 MG TABLET PO PRN (20:44)
[2019-11-15 02:48] LABS: Basophils % 0.2 %; Eosinophils # 0.3 K/mcL (0.0-0.6); Eosinophils % 3.5 %; Hematocrit 24.5 % (37.5-50.1); Hemoglobin 8.1 g/dL (12.9-16.9); Immature Granulocytes % 1.3 % (0-4); Lymphocytes # 0.7 K/mcL (0.6-4.6); Lymphocytes % 8.7 %; Mean Corpuscular HGB Conc 33.1 g/dL (31.6-35.5); Mean Corpuscular Hemoglobin 29.8 pg (28.0-33.3); Mean Corpuscular Volume 90.1 fL (83.0-100.0); Mean Platelet Volume 9.1 fL (9.4-12.4); Monocytes # 0.7 K/mcL (0.0-1.3); Monocytes % 8.1 %; Neutrophils # 6.5 K/mcL (1.6-8.9); Platelet Count 291 K/mcL (140-400); Red Blood Count 2.72 M/mcL (4.19-5.50); Red Cell Distribution Width 14.3 % (11.5-14.5); Segmented Neutrophils % 78.2 %; White Blood Count 8.4 K/mcL (4.3-11.1)
[2019-11-15 03:08] LABS: Calcium 7.6 mg/dL (8.6-10.3); Potassium 3.9 mEq/L (3.5-5.1)
[2019-11-15 03:41] LABS: Magnesium 2.2 mg/dL (1.6-2.6)
[2019-11-15] MEDS: Acetaminophen 325 MG TABLET PO PRN (06:14)
[2019-11-15] MEDS: Doxycycline 100 MG in 0.9 % Sodium Chloride Mini Bag 100 ML IVPB SCH (06:14)
[2019-11-15] MEDS: *HR* Heparin 5,000 UNIT/ML VIAL SQ SCH ×2 (06:15→17:33)
[2019-11-15] MEDS: Insulin LISPRO 300 UNITS/3 ML VIAL SQ SCH ×4 (07:31→21:30)
[2019-11-15] MEDS: Lactulose Oral Soln 20 GM/30 ML UDC PO SCH ×2 (08:49→21:26)
[2019-11-15] MEDS: Aspirin 81 MG TAB.CHEW PO SCH (08:49)
[2019-11-15] MEDS: Gabapentin 300 MG CAPSULE PO SCH (08:49)
[2019-11-15] MEDS: Multivit/Ca/Min/Fe/FA 1 TAB TABLET PO SCH (08:49)
[2019-11-15] MEDS: *HR* Amiodarone 200 MG TABLET PO SCH ×3 (08:49→21:47)
[2019-11-15] MEDS: Norepinephrine 4 MG in 0.9 % Sodium Chloride 250 ML IVC SCH (08:50)
[2019-11-15] MEDS: Chlorhexidine Rinse 15 ML MOUTHWASH MM SCH (08:50)
[2019-11-15] MEDS: Nystatin SUSP 5 ML UD.LIQ PO SCH ×4 (08:50→21:27)
[2019-11-15] MEDS: Insulin DETEMIR 100 UNIT/ML X5UNITS SQ SCH ×2 (09:35→23:42)
[2019-11-15] MEDS ORDERED: *HR* OxyCODONE/APAP 5/325 TABLET PO PRN (09:46)
[2019-11-15] MEDS ORDERED: Nitroglycerin 0.4 MG TAB.SUBL SL PRN (09:46)
[2019-11-15] MEDS ORDERED: Dextrose Gel 15 GM/37.5 ML TUBE PO PRN ×2 (09:46)
[2019-11-15] MEDS ORDERED: Albumin 25% 25gram/100mL 25 GM/100 ML IV.SOLN IVPB PRN (09:46)
[2019-11-15] MEDS ORDERED: D5% in Water 1,000 ML IVC PRN (09:46)
[2019-11-15] MEDS ORDERED: *HR* Dextrose 50 % in Water (Syg) 50 ML SYRINGE IVP PRN (09:46)
[2019-11-15] MEDS ORDERED: *HR* Alteplase (Cathflo) 2 MG VIAL IVP PRN (09:46)
[2019-11-15] MEDS ORDERED: Levalbuterol Neb 1.25 MG/3 ML IH PRN (09:46)
[2019-11-15] MEDS ORDERED: Naloxone 0.4 MG/ML INJ IVP PRN (09:46)
[2019-11-15] MEDS ORDERED: Prochlorperazine 10 MG/2 ML VIAL IVP PRN (09:46)
[2019-11-15] MEDS: Levalbuterol Neb 1.25 MG/3 ML IH SCH ×2 (10:38→22:35)
[2019-11-16] MEDS: *HR* Heparin 5,000 UNIT/ML VIAL SQ SCH ×2 (05:37→16:53)
[2019-11-16 05:51] LABS: Basophils % 0.3 %; Eosinophils # 0.3 K/mcL (0.0-0.6); Eosinophils % 3.2 %; Hematocrit 25.7 % (37.5-50.1); Hemoglobin 8.3 g/dL (12.9-16.9); Immature Granulocytes % 1.7 % (0-4); Lymphocytes # 0.8 K/mcL (0.6-4.6); Lymphocytes % 8.2 %; Mean Corpuscular HGB Conc 32.3 g/dL (31.6-35.5); Mean Corpuscular Volume 92.8 fL (83.0-100.0); Mean Platelet Volume 9.3 fL (9.4-12.4); Monocytes # 0.9 K/mcL (0.0-1.3); Neutrophils # 7.4 K/mcL (1.6-8.9); Platelet Count 326 K/mcL (140-400); Red Blood Count 2.77 M/mcL (4.19-5.50); Red Cell Distribution Width 13.8 % (11.5-14.5); Segmented Neutrophils % 77.6 %; White Blood Count 9.6 K/mcL (4.3-11.1)
[2019-11-16 06:17] LABS: Albumin 2.8 g/dL (3.5-5.7); Albumin/Globulin Ratio 1.2 (1.1-2.2); Bilirubin,Total 0.3 mg/dL (0.3-1.0); Calcium 7.9 mg/dL (8.6-10.3); Globulin 2.4 g/dL (2.4-3.5); Magnesium 2.2 mg/dL (1.6-2.6); Phosphorous 3.3 mg/dL (2.7-4.5); Potassium 4.1 mEq/L (3.5-5.1); Total Protein 5.2 g/dL (6.4-8.9)
[2019-11-16] MEDS ORDERED: 0.9 % Sodium Chloride 250 ML IVC PRN (07:02)
[2019-11-16] MEDS ORDERED: Albumin 25% 25gram/100mL 25 GM/100 ML IV.SOLN IVPB PRN (07:02)
[2019-11-16] MEDS ORDERED: 0.9 % Sodium Chloride 1,000 ML PRIME SCH (07:15)
[2019-11-16] MEDS: Levalbuterol Neb 1.25 MG/3 ML IH SCH ×2 (07:46→21:41)
[2019-11-16] MEDS: Multivit/Ca/Min/Fe/FA 1 TAB TABLET PO SCH (08:11)
[2019-11-16] MEDS: *HR* Amiodarone 200 MG TABLET PO SCH ×3 (08:11→21:31)
[2019-11-16] MEDS: Gabapentin 300 MG CAPSULE PO SCH (08:11)
[2019-11-16] MEDS: Lactulose Oral Soln 20 GM/30 ML UDC PO SCH ×2 (08:12→21:31)
[2019-11-16] MEDS: Nystatin SUSP 5 ML UD.LIQ PO SCH ×4 (08:12→21:31)
[2019-11-16] MEDS: Aspirin 81 MG TAB.CHEW PO SCH (08:20)
[2019-11-16] MEDS: Insulin DETEMIR 100 UNIT/ML X5UNITS SQ SCH ×2 (08:34→21:37)
[2019-11-16 08:56] LABS: Hepatitis B Surface Antibody < 3.10 mIU/mL
[2019-11-16 09:36] LABS: Hepatitis B Core IgM Nonreactive (Nonreactive)
[2019-11-16] MEDS: Insulin LISPRO 300 UNITS/3 ML VIAL SQ SCH ×4 (10:07→21:35)
[2019-11-16 10:29] LABS: Hepatitis B Surface Antigen Nonreactive (Nonreactive)
[2019-11-17] MEDS: Melatonin 3 MG TABLET PO PRN (01:07)
[2019-11-17] MEDS: *HR* Heparin 5,000 UNIT/ML VIAL SQ SCH ×2 (05:52→17:10)
[2019-11-17 07:59] LABS: Basophils % 0.5 %; Eosinophils # 0.3 K/mcL (0.0-0.6); Eosinophils % 3.2 %; Hematocrit 24.5 % (37.5-50.1); Hemoglobin 8.1 g/dL (12.9-16.9); Immature Granulocytes % 1.5 % (0-4); Lymphocytes # 0.7 K/mcL (0.6-4.6); Lymphocytes % 9.4 %; Mean Corpuscular HGB Conc 33.1 g/dL (31.6-35.5); Mean Corpuscular Hemoglobin 30.2 pg (28.0-33.3); Mean Corpuscular Volume 91.4 fL (83.0-100.0); Mean Platelet Volume 9.3 fL (9.4-12.4); Monocytes # 0.8 K/mcL (0.0-1.3); Monocytes % 10.4 %; Neutrophils # 5.9 K/mcL (1.6-8.9); Platelet Count 341 K/mcL (140-400); Red Blood Count 2.68 M/mcL (4.19-5.50); Red Cell Distribution Width 14.1 % (11.5-14.5); White Blood Count 7.9 K/mcL (4.3-11.1)
[2019-11-17 08:18] LABS: Calcium 7.9 mg/dL (8.6-10.3); Potassium 4.3 mEq/L (3.5-5.1)
[2019-11-17] MEDS ORDERED: Clindamycin 600 MG/50 ML 600 MG/50 ML IV.SOLN IVPB ONE (08:46)
[2019-11-17] MEDS: Multivit/Ca/Min/Fe/FA 1 TAB TABLET PO SCH (08:55)
[2019-11-17] MEDS: *HR* Amiodarone 200 MG TABLET PO SCH ×2 (08:56→21:18)
[2019-11-17] MEDS: Aspirin 81 MG TAB.CHEW PO SCH (08:56)
[2019-11-17] MEDS: Gabapentin 300 MG CAPSULE PO SCH (08:56)
[2019-11-17] MEDS: Lactulose Oral Soln 20 GM/30 ML UDC PO SCH ×2 (08:58→21:18)
[2019-11-17] MEDS: Nystatin SUSP 5 ML UD.LIQ PO SCH ×4 (08:59→21:18)
[2019-11-17] MEDS: Insulin DETEMIR 100 UNIT/ML X5UNITS SQ SCH ×2 (08:59→21:23)
[2019-11-17] MEDS: Insulin LISPRO 300 UNITS/3 ML VIAL SQ SCH ×4 (09:09→21:18)
[2019-11-17] MEDS ORDERED: Heparin 1,000 UNITS/500 mL 500 ML ONE (10:28)
[2019-11-17] MEDS: Levalbuterol Neb 1.25 MG/3 ML IH SCH ×2 (10:51→22:57)
[2019-11-17] MEDS ORDERED: *HR* Midazolam HCl 2 MG/2 ML VIAL ONE (11:08)
[2019-11-17] MEDS ORDERED: *HR* FentaNYL (PF) 100 MCG/2 ML VIAL IVP ONE (11:08)
[2019-11-17] MEDS ORDERED: *HR* FentaNYL (PF) 100 MCG/2 ML VIAL ONE (11:08)
[2019-11-17] MEDS ORDERED: *HR* Midazolam HCl 2 MG/2 ML VIAL IVP ONE (11:09)
[2019-11-17] MEDS ORDERED: *HR* Heparin 10,000 UNIT/10 ML VIAL IVP ONE (11:13)
[2019-11-17] MEDS ORDERED: *HR* Heparin 5,000 UNIT/ML VIAL ONE (11:25)
[2019-11-18] MEDS: Melatonin 3 MG TABLET PO PRN ×2 (03:05→23:35)
[2019-11-18] MEDS: *HR* Heparin 5,000 UNIT/ML VIAL SQ SCH ×2 (05:32→17:19)
[2019-11-18 06:55] LABS: Hemoglobin 7.8 g/dL (12.9-16.9); Mean Corpuscular HGB Conc 31.2 g/dL (31.6-35.5); Mean Corpuscular Hemoglobin 29.5 pg (28.0-33.3); Mean Corpuscular Volume 94.7 fL (83.0-100.0); Mean Platelet Volume 9.6 fL (9.4-12.4); Platelet Count 345 K/mcL (140-400); Red Blood Count 2.64 M/mcL (4.19-5.50); White Blood Count 9.1 K/mcL (4.3-11.1)
[2019-11-18 07:14] LABS: Calcium 7.9 mg/dL (8.6-10.3); Potassium 4.7 mEq/L (3.5-5.1)
[2019-11-18] MEDS ORDERED: 0.9 % Sodium Chloride 250 ML IVC PRN (08:13)
[2019-11-18] MEDS ORDERED: *HR* Heparin 10,000 UNIT/10 ML VIAL IV PRN ×2 (08:13)
[2019-11-18] MEDS ORDERED: 0.9 % Sodium Chloride 1,000 ML PRIME SCH (08:15)
[2019-11-18] MEDS: Multivit/Ca/Min/Fe/FA 1 TAB TABLET PO SCH (08:23)
[2019-11-18] MEDS: Aspirin 81 MG TAB.CHEW PO SCH (08:23)
[2019-11-18] MEDS: Gabapentin 300 MG CAPSULE PO SCH (08:23)
[2019-11-18] MEDS: Insulin DETEMIR 100 UNIT/ML X5UNITS SQ SCH ×2 (08:24→20:38)
[2019-11-18] MEDS: Nystatin SUSP 5 ML UD.LIQ PO SCH ×4 (08:24→20:36)
[2019-11-18] MEDS: Insulin LISPRO 300 UNITS/3 ML VIAL SQ SCH ×4 (08:24→20:38)
[2019-11-18] MEDS: Levalbuterol Neb 1.25 MG/3 ML IH SCH ×2 (10:58→21:49)
[2019-11-18] MEDS: Lactulose Oral Soln 20 GM/30 ML UDC PO SCH ×2 (15:41→20:36)
[2019-11-18] MEDS: *HR* Amiodarone 200 MG TABLET PO SCH ×2 (15:42→20:36)
[2019-11-19 01:50] LABS: Hematocrit 25.2 % (37.5-50.1); Mean Corpuscular HGB Conc 31.7 g/dL (31.6-35.5); Mean Corpuscular Hemoglobin 30.3 pg (28.0-33.3); Mean Corpuscular Volume 95.5 fL (83.0-100.0); Mean Platelet Volume 9.6 fL (9.4-12.4); Platelet Count 325 K/mcL (140-400); Red Blood Count 2.64 M/mcL (4.19-5.50); Red Cell Distribution Width 14.1 % (11.5-14.5); White Blood Count 7.8 K/mcL (4.3-11.1)
[2019-11-19 02:11] LABS: Potassium 4.4 mEq/L (3.5-5.1)
[2019-11-19 02:12] LABS: Calcium 7.9 mg/dL (8.6-10.3)
[2019-11-19] MEDS: *HR* Heparin 5,000 UNIT/ML VIAL SQ SCH ×2 (07:20→17:22)
[2019-11-19] MEDS: Insulin LISPRO 300 UNITS/3 ML VIAL SQ SCH ×4 (07:53→20:44)
[2019-11-19] MEDS: Aspirin 81 MG TAB.CHEW PO SCH (07:56)
[2019-11-19] MEDS: Gabapentin 300 MG CAPSULE PO SCH (07:57)
[2019-11-19] MEDS: Multivit/Ca/Min/Fe/FA 1 TAB TABLET PO SCH (07:58)
[2019-11-19] MEDS: Nystatin SUSP 5 ML UD.LIQ PO SCH ×2 (07:58→11:08)
[2019-11-19] MEDS: *HR* Amiodarone 200 MG TABLET PO SCH ×2 (07:58→20:43)
[2019-11-19] MEDS: Insulin DETEMIR 100 UNIT/ML X5UNITS SQ SCH ×2 (08:04→20:44)
[2019-11-19] MEDS: Lactulose Oral Soln 20 GM/30 ML UDC PO SCH ×2 (08:04→23:05)
[2019-11-19] MEDS: Levalbuterol Neb 1.25 MG/3 ML IH SCH ×2 (10:31→22:50)
[2019-11-19] MEDS: Melatonin 3 MG TABLET PO PRN (21:10)
[2019-11-20 01:19] LABS: Hematocrit 26.3 % (37.5-50.1); Hemoglobin 8.3 g/dL (12.9-16.9); Mean Corpuscular HGB Conc 31.6 g/dL (31.6-35.5); Mean Corpuscular Hemoglobin 29.6 pg (28.0-33.3); Mean Corpuscular Volume 93.9 fL (83.0-100.0); Mean Platelet Volume 9.6 fL (9.4-12.4); Platelet Count 378 K/mcL (140-400); Red Cell Distribution Width 14.3 % (11.5-14.5); White Blood Count 8.5 K/mcL (4.3-11.1)
[2019-11-20 01:44] LABS: Calcium 8.1 mg/dL (8.6-10.3); Potassium 4.9 mEq/L (3.5-5.1)
[2019-11-20] MEDS: *HR* Heparin 5,000 UNIT/ML VIAL SQ SCH ×2 (06:15→17:09)
[2019-11-20] MEDS: Levalbuterol Neb 1.25 MG/3 ML IH SCH ×2 (07:50→22:28)
[2019-11-20] MEDS: Lactulose Oral Soln 20 GM/30 ML UDC PO SCH ×2 (08:11→21:06)
[2019-11-20] MEDS: Gabapentin 300 MG CAPSULE PO SCH (08:12)
[2019-11-20] MEDS: *HR* Amiodarone 200 MG TABLET PO SCH ×2 (08:12→21:08)
[2019-11-20] MEDS: Aspirin 81 MG TAB.CHEW PO SCH (08:12)
[2019-11-20] MEDS: Insulin DETEMIR 100 UNIT/ML X5UNITS SQ SCH ×2 (08:12→21:08)
[2019-11-20] MEDS: Multivit/Ca/Min/Fe/FA 1 TAB TABLET PO SCH (08:12)
[2019-11-20] MEDS: Insulin LISPRO 300 UNITS/3 ML VIAL SQ SCH ×4 (08:14→21:08)
[2019-11-20] MEDS: Melatonin 3 MG TABLET PO PRN (21:55)
[2019-11-21 04:25] LABS: Hematocrit 25.5 % (37.5-50.1); Hemoglobin 8.2 g/dL (12.9-16.9); Mean Corpuscular HGB Conc 32.2 g/dL (31.6-35.5); Mean Corpuscular Hemoglobin 29.6 pg (28.0-33.3); Mean Corpuscular Volume 92.1 fL (83.0-100.0); Mean Platelet Volume 9.3 fL (9.4-12.4); Platelet Count 379 K/mcL (140-400); Red Blood Count 2.77 M/mcL (4.19-5.50); Red Cell Distribution Width 14.4 % (11.5-14.5); White Blood Count 9.2 K/mcL (4.3-11.1)
[2019-11-21 04:44] LABS: Calcium 8.2 mg/dL (8.6-10.3); Potassium 5.4 mEq/L (3.5-5.1)
[2019-11-21] MEDS: *HR* Heparin 5,000 UNIT/ML VIAL SQ SCH ×2 (06:19→17:26)
[2019-11-21] MEDS ORDERED: *HR* Heparin 10,000 UNIT/10 ML VIAL ONE (07:07)
[2019-11-21] MEDS ORDERED: 0.9 % Sodium Chloride 1,000 ML ONE (07:07)
[2019-11-21] MEDS: Levalbuterol Neb 1.25 MG/3 ML IH SCH ×2 (07:38→22:40)
[2019-11-21] MEDS ORDERED: 0.9 % Sodium Chloride 1,000 ML PRIME SCH (07:45)
[2019-11-21] MEDS ORDERED: *HR* Heparin 10,000 UNIT/10 ML VIAL IV PRN ×2 (07:45)
[2019-11-21] MEDS ORDERED: 0.9 % Sodium Chloride 250 ML IVC PRN (07:45)
[2019-11-21] MEDS: *HR* Amiodarone 200 MG TABLET PO SCH ×2 (08:33→21:08)
[2019-11-21] MEDS: Aspirin 81 MG TAB.CHEW PO SCH (08:33)
[2019-11-21] MEDS: Gabapentin 300 MG CAPSULE PO SCH (08:33)
[2019-11-21] MEDS: Insulin DETEMIR 100 UNIT/ML X5UNITS SQ SCH ×2 (08:33→21:08)
[2019-11-21] MEDS: Insulin LISPRO 300 UNITS/3 ML VIAL SQ SCH ×4 (08:34→21:09)
[2019-11-21] MEDS: Lactulose Oral Soln 20 GM/30 ML UDC PO SCH ×2 (08:34→21:07)
[2019-11-21] MEDS: Multivit/Ca/Min/Fe/FA 1 TAB TABLET PO SCH (08:34)
[2019-11-21] MEDS: Acetaminophen 325 MG TABLET PO PRN (17:35)
[2019-11-21] MEDS: Melatonin 3 MG TABLET PO PRN (21:10)
[2019-11-22] MEDS ORDERED: Melatonin 3 MG TABLET PO STA (01:13)
[2019-11-22 01:36] LABS: Hematocrit 24.4 % (37.5-50.1); Hemoglobin 7.6 g/dL (12.9-16.9); Mean Corpuscular HGB Conc 31.1 g/dL (31.6-35.5); Mean Corpuscular Hemoglobin 29.2 pg (28.0-33.3); Mean Corpuscular Volume 93.8 fL (83.0-100.0); Platelet Count 361 K/mcL (140-400); Red Cell Distribution Width 14.4 % (11.5-14.5)
[2019-11-22 01:53] LABS: Calcium 8.3 mg/dL (8.6-10.3); Potassium 4.6 mEq/L (3.5-5.1)
[2019-11-22] MEDS: *HR* Heparin 5,000 UNIT/ML VIAL SQ SCH ×2 (06:03→17:25)
[2019-11-22] MEDS: Insulin LISPRO 300 UNITS/3 ML VIAL SQ SCH ×4 (08:21→20:31)
[2019-11-22] MEDS: Multivit/Ca/Min/Fe/FA 1 TAB TABLET PO SCH (08:22)
[2019-11-22] MEDS: Aspirin 81 MG TAB.CHEW PO SCH (08:22)
[2019-11-22] MEDS: *HR* Amiodarone 200 MG TABLET PO SCH ×2 (08:23→20:30)
[2019-11-22] MEDS: Lactulose Oral Soln 20 GM/30 ML UDC PO SCH ×2 (08:23→20:31)
[2019-11-22] MEDS: Gabapentin 300 MG CAPSULE PO SCH (08:23)
[2019-11-22] MEDS: Insulin DETEMIR 100 UNIT/ML X5UNITS SQ SCH ×2 (08:33→20:31)
[2019-11-22] MEDS: Acetaminophen 325 MG TABLET PO PRN (09:41)
[2019-11-22] MEDS: Levalbuterol Neb 1.25 MG/3 ML IH SCH ×2 (11:15→20:12)
[2019-11-22] MEDS: Melatonin 3 MG TABLET PO PRN (20:32)
[2019-11-23] MEDS: *HR* Heparin 5,000 UNIT/ML VIAL SQ SCH ×2 (06:00→17:41)
[2019-11-23 06:08] LABS: Hematocrit 25.3 % (37.5-50.1); Hemoglobin 7.9 g/dL (12.9-16.9); Mean Corpuscular HGB Conc 31.2 g/dL (31.6-35.5); Mean Corpuscular Hemoglobin 30.3 pg (28.0-33.3); Mean Corpuscular Volume 96.9 fL (83.0-100.0); Mean Platelet Volume 8.6 fL (9.4-12.4); Platelet Count 332 K/mcL (140-400); Red Blood Count 2.61 M/mcL (4.19-5.50); Red Cell Distribution Width 14.6 % (11.5-14.5); White Blood Count 8.6 K/mcL (4.3-11.1)
[2019-11-23 06:27] LABS: Calcium 8.6 mg/dL (8.6-10.3); Potassium 5.4 mEq/L (3.5-5.1)
[2019-11-23] MEDS ORDERED: 0.9 % Sodium Chloride 250 ML IVC PRN (07:51)
[2019-11-23] MEDS ORDERED: *HR* Heparin 10,000 UNIT/10 ML VIAL IV PRN ×2 (07:51)
[2019-11-23] MEDS: Insulin LISPRO 300 UNITS/3 ML VIAL SQ SCH ×4 (08:48→21:54)
[2019-11-23] MEDS: Insulin DETEMIR 100 UNIT/ML X5UNITS SQ SCH ×2 (08:49→21:50)
[2019-11-23] MEDS: Aspirin 81 MG TAB.CHEW PO SCH (09:00)
[2019-11-23] MEDS: *HR* Amiodarone 200 MG TABLET PO SCH ×2 (09:30→21:49)
[2019-11-23] MEDS: Multivit/Ca/Min/Fe/FA 1 TAB TABLET PO SCH (09:30)
[2019-11-23] MEDS: Levalbuterol Neb 1.25 MG/3 ML IH SCH ×2 (10:46→22:04)
[2019-11-23] MEDS: Lactulose Oral Soln 20 GM/30 ML UDC PO SCH ×2 (14:25→21:49)
[2019-11-23] MEDS: Gabapentin 300 MG CAPSULE PO SCH (14:25)
[2019-11-24] MEDS: Melatonin 3 MG TABLET PO PRN (00:07)
[2019-11-24 05:03] LABS: Hematocrit 24.5 % (37.5-50.1); Hemoglobin 7.5 g/dL (12.9-16.9); Mean Corpuscular HGB Conc 30.6 g/dL (31.6-35.5); Mean Corpuscular Hemoglobin 29.3 pg (28.0-33.3); Mean Corpuscular Volume 95.7 fL (83.0-100.0); Mean Platelet Volume 8.6 fL (9.4-12.4); Platelet Count 338 K/mcL (140-400); Red Blood Count 2.56 M/mcL (4.19-5.50); Red Cell Distribution Width 14.5 % (11.5-14.5); White Blood Count 7.9 K/mcL (4.3-11.1)
[2019-11-24 05:26] LABS: Calcium 8.4 mg/dL (8.6-10.3); Potassium 4.4 mEq/L (3.5-5.1)
[2019-11-24] MEDS: *HR* Heparin 5,000 UNIT/ML VIAL SQ SCH (06:06)
[2019-11-24] MEDS: Insulin LISPRO 300 UNITS/3 ML VIAL SQ SCH ×2 (07:39→13:04)
[2019-11-24] MEDS: Lactulose Oral Soln 20 GM/30 ML UDC PO SCH (09:10)
[2019-11-24] MEDS: Aspirin 81 MG TAB.CHEW PO SCH (09:10)
[2019-11-24] MEDS: *HR* Amiodarone 200 MG TABLET PO SCH (09:10)
[2019-11-24] MEDS: Multivit/Ca/Min/Fe/FA 1 TAB TABLET PO SCH (09:11)
[2019-11-24] MEDS: Gabapentin 300 MG CAPSULE PO SCH (09:11)
[2019-11-24] MEDS: Insulin DETEMIR 100 UNIT/ML X5UNITS SQ SCH (09:11)
[2019-11-24] MEDS ORDERED: FLU Vac QV 19-20 (6Month+)/PF 0.5 ML SYRINGE IM ONE (10:23)
[2019-11-24] MEDS: Levalbuterol Neb 1.25 MG/3 ML IH SCH (10:59)
[2019-11-24 12:02] VITALS: BP 117/57
== END 2019-11-24 14:27 | DRG 222 ==
LOC: 2NENU → SUATTDRO 17:46 → ICNU 10-31 08:40 → 2NNU 11-01 17:29 → ICNU 11-07 11:35 → 2NNU 11-15 18:22
PROVIDERS: ADMIT Internal Medicine; ATTEND Thoracic Surgery (Cardiothoracic Vascular Surgery)
PROC: IRPERMA (2019-11-17 12:00)